=== PATIENT | male | born 1995 | race Caucasian/White ===

== ENCOUNTER 2021-08-13 01:36 | Emergency (ER) | payer OTHER, SELFPAY ==
--- NOTE | ~2021-08-13 | XR_ITS ---
EXAMINATION: XR chest 2V DATE: 08/13/2021 03:14 INDICATION: Dizziness. TECHNIQUE: Frontal and lateral views of the chest were obtained. COMPARISON: Chest 2 views 05/15/2014 FINDINGS: The chest demonstrates clear lungs without pneumonia, pleural effusion, or pneumothorax. Th e heart size is normal. IMPRESSION: 1. No acute cardiopulmonary disease. Reviewed, dictated and finalized at location A. RACTIVE DEVELOPER
[2021-08-13 01:43] VITALS: BP 157/97; PULSE 99; RESP 14; TEMP 36.7; O2SAT 100
[2021-08-13 03:18] LABS: Basophils Absolute Auto 0.1 K/mm3 (0.0-0.1); Basophils Percent Auto 0.7 % (0.2-1.2); Eosinophils Absolute Auto 0.3 K/mm3 (0-0.3); Eosinophils Percent Auto 3.8 % (0-4.4); Hematocrit 48.5 % (42.0-52.0); Hemoglobin 16.4 g/dL (14.0-18.0); Immature Granulocyte Absolute 0.02 K/mm3 (0.00-0.031); Immature Granulocyte Percent A 0.2 % (0-0.5); Lymphocytes Absolute Auto 1.54 K/mm3 (0.9-3.2); Lymphocytes Percent Auto 19.1 % (18.3-44.2); Mean Corpuscular HGB Conc 33.8 g/dl (32-36); Mean Corpuscular Hemoglobin 30.4 pg (26-34); Mean Corpuscular Volume 89.8 fl (80-100); Monocytes Absolute Auto 1.1 K/mm3 (0.1-0.6); Monocytes Percent Auto 14.1 % (2.6-8.5); Neutrophils Percent Auto 62.1 % (45.5-73.1); Platelet Count Result 371 k/mm3 (150-375); Red Cell Distribution Width 12.5 % (11.5-14.5); White Blood Count 8.1 K/mm3 (4.5-10.0)
[2021-08-13 03:20] VITALS: BP 145/85; PULSE 86
[2021-08-13 03:21] VITALS: BP 148/97; PULSE 96
[2021-08-13 03:22] VITALS: BP 141/93; PULSE 120
[2021-08-13 03:40] LABS: Add Urine Microscopic? YES; Appearance Urine Cloudy (Clear); Bacteria Urine 2+ /hpf; Bilirubin Urine Negative (Negative); Blood Urine Negative (Negative); Color Urine Yellow (Yellow); Glucose Urine UA Negative (Negative); Ketones Urine Trace mg/dL (Negative); Leukocyte Esterase Ur Negative LEU/UL (Negative); Mucus Urine Rare /lpf; Nitrate Urine Negative (Negative); Protein Urine 1+ mg/dL (Negative); Squamous Epithelial Cell Urine Rare /hpf (Few)
[2021-08-13 04:05] LABS: Anion Gap 12 mmol/L (8-16); Blood Urea Nitrogen 17 mg/dL (9-20); Calcium 9.6 mg/dL (8.4-10.2); Carbon Dioxide 26 mmol/L (22-30); Chloride 104 mmol/L (98-107); Estimated CRCL calculation 113 ml/min; Estimated Glomerular Filt Rate > 60; Glucose 111 mg/dL (65-110); Potassium 3.6 mmol/L (3.4-5.0); Sodium 142 mmol/L (137-145)
[2021-08-13] MEDS: SODIUM CHLORIDE 0.9% IV 1,000 ML 999 ML IV CONT (04:17)
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
[2021-08-13 04:50] VITALS: BP 132/94; PULSE 83; RESP 16; O2SAT 100
== END 2021-08-13 05:24 | disposition home or self-care (01) ==
PROVIDERS: Emergency Provider Emergency Medicine
DX: F15.23 Other stimulant dependence with withdrawal (principal); E86.0 Dehydration
CPT/HCPCS: 36415; 71046; 80048; 81001; 85025; 96360; 99283; J7030

== ENCOUNTER 2024-06-06 12:59 | Emergency (ER) | payer OTHER, SELFPAY ==
[2024-06-06] VITALS (25 sets, daily range): BP systolic 122–140; BP diastolic 72–86; PULSE 71–91; RESP 13–20; TEMP 36.4–36.9; O2SAT 95–100
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
--- NOTE | 2024-06-06 13:30 | ECG_ITS ---
Test Date: 2024-06-06 13:35:26 Measurements Intervals [place] Rate: 76 P: 64 [place]: 158 QRS: 61 QRSD: 93 T: 61 QT: 366 QTc: 412 Interpretive Statements SINUS RHYTHM NORMAL ECG No previous ECG available for comparison Electronically Signed On 06-06-2024 17:31:35 CDT by Lei Virk D.O.
--- NOTE | 2024-06-06 13:41 | PC.NURSE ---
patient to xray
[2024-06-06 13:52] LABS: Alanine Aminotransferase 20 U/L (6-50); Albumin Level 3.9 g/dL (3.5-5.1); Alkaline Phosphatase 92 U/L (38-126); Anion Gap 6 mmol/L (4-12); Aspartate Amino Transferase 24 U/L (17-59); Bilirubin,Total 0.7 mg/dL (0.2-1.3); Blood Urea Nitrogen 13 mg/dL (9-20); Carbon Dioxide 29 mmol/L (22-30); Chloride 92 mmol/L (98-107); Estimated CRCL calculation 159 ml/min; Estimated Glomerular Filt Rate > 60; Glucose 100 mg/dL (65-110); Potassium 3.8 mmol/L (3.4-5.0); Sodium 127 mmol/L (137-145)
[2024-06-06 13:57] LABS: Basophils Percent Auto 0.4 % (0.2-1.2); Eosinophils Absolute Auto 0.3 K/mm3 (0-0.3); Eosinophils Percent Auto 4.1 % (0-4.4); Hematocrit 39.4 % (42.0-52.0); Hemoglobin 13.6 g/dL (14.0-18.0); Immature Granulocyte Absolute 0.02 K/mm3 (0.00-0.031); Immature Granulocyte Percent A 0.3 % (0-0.5); Lymphocytes Absolute Auto 1.22 K/mm3 (0.9-3.2); Mean Corpuscular HGB Conc 34.5 g/dl (32-36); Mean Corpuscular Hemoglobin 31.1 pg (26-34); Mean Corpuscular Volume 90.2 fl (80-100); Mean Platelet Volume 9.9 fl (7.4-10.4); Monocytes Absolute Auto 0.9 K/mm3 (0.1-0.6); Monocytes Percent Auto 11.9 % (2.6-8.5); Neutrophils Absolute Auto 4.8 K/mm3 (1.3-6.7); Neutrophils Percent Auto 66.3 % (45.5-73.1); Platelet Count Result 305 k/mm3 (150-375); Red Blood Count 4.37 M/mm3 (4.6-6.20); White Blood Count 7.2 K/mm3 (4.5-10.0)
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
[2024-06-06] MEDS: diphenhydrAMINE HCl INJ 50 MG/ML VIAL 25 MG IV PUSH (16:36)
[2024-06-06] MEDS: KETOROLAC 15 MG/ML VIAL (*BKC) IV PUSH (16:36)
[2024-06-06] MEDS: PROCHLORPERAZINE EDISYLATE 10 MG/2 ML VIAL 5 MG IV PUSH (16:36)
[2024-06-06] MEDS: ACETAMINOPHEN 500 MG TABLET 1000 MG PO (16:36)
[2024-06-06] MEDS: SODIUM CHLORIDE 0.9% IV 1,000 ML 999 ML IV CONT (16:44)
== END 2024-06-06 17:51 | disposition home or self-care (01) ==
PROVIDERS: Emergency Provider Student in an Organized Health Care Education/Training Program
DX: R51.9 Headache, unspecified (principal); S06.2XAS Diffuse traumatic brain injury with loss of consciousness status unknown, sequela; E87.1 Hypo-osmolality and hyponatremia; S42.002S Fracture of unspecified part of left clavicle, sequela; S02.19XS Other fracture of base of skull, sequela; S02.10 Unspecified fracture of base of skull; D64.9 Anemia, unspecified; V29.99XS Rider (driver) (passenger) of other motorcycle injured in unspecified traffic accident, sequela
CPT/HCPCS: 36415; 70450; 70486; 71046; 80053; 85025; 93005; 96361; 96374; 96375; 99284; A4565; A9270; J0780; J1200; J1885; J7030

== ENCOUNTER 2024-11-13 18:52 | Inpatient (IN) | payer OTHER, SELFPAY ==
[2024-11-13] VITALS (22 sets, daily range): BP systolic 123–156; BP diastolic 70–101; PULSE 82–106; RESP 11–21; TEMP 36.7–37; O2SAT 97–100; BMI 22.1
--- NOTE | ~2024-11-13 | XR_ITS ---
Portable chest x-ray Comparison: 06/06/2024 Clinical History: Hyponatremia Findings: Lungs are clear, without focal consolidation or pleural effusion. Cardiomediastinal silho uette is stable. Bones and soft tissues are unremarkable. Impression: Normal chest. Reviewed, dictated and finalized at [facility]. CENTER MANAGER Impression: Normal chest.
--- NOTE | ~2024-11-13 | CT_ITS ---
Non-contrast Head CT History: Confusion COMPARISON: 06/06/2024 Technique: Axial non-contrast imaging of the brain was performed. Dose reduction technique was used on this scan by utilizing automated exposure control and iterative reconstruction technique. The dose -length product (DLP) was 681.00 mGy-cm. Findings: There is no evidence of intracranial hemorrhage, mass lesion, or acute infarct. Brain par enchyma appears normal. The ventricles and subarachnoid spaces are normal in size. The calvarium ap pears normal. There is partially imaged right maxillary sinus disease. The remaining visualized paran cher sinuses and mastoid air cells are clear. Impression: No intracranial abnormality seen. Reviewed, dictated and finalized at location . TH AND SAFETY REPRESENTATIVE Impression: No intracranial abnormality seen.
--- OUTSIDE RECORDS SUMMARY | 2024-11-13 18:55 | XMS_ITS | CONTINUITY OF CARE DOCUMENT ---
Author Name sandor patten Address Unknown Organization [facility] Address [address] [place] [address] Phone [phone] Care Team Providers Care M48 M60 Armor Crewman Name Role Phone Ricardo Restrepo MD Unavailable [phone] KAREN MILLER MD Unavailable [phone] KAREN MILLER MD Unavailable INSURANCE PROVIDERS Payer name Policy type / Coverage type [place] red green party ID [employer] [place] Medicaid [id number]
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
[2024-11-13] MEDS: ONDANSETRON INJ 4 MG/2 ML VIAL IV PUSH (19:46)
--- OUTSIDE RECORDS SUMMARY | 2024-11-13 19:47 | XMS_ITS | CONTINUITY OF CARE DOCUMENT ---
Author Name sandor patten Address Unknown Organization [facility] Address [address] [place] [address] Phone [phone] Care Team Providers Care Chorus Master Name Role Phone Ricardo Restrepo MD Unavailable KAREN MILLER MD Unavailable [phone] KAREN MILLER MD Unavailable [phone] INSURANCE PROVIDERS Payer name Policy type / Coverage type [place] red republican ID [employer] [place] Medicaid [id number]
[2024-11-13 20:09] LABS: Basophils Percent Auto 0.2 % (0.2-1.2); Eosinophils Absolute Auto 0.1 K/mm3 (0-0.3); Eosinophils Percent Auto 0.6 % (0-4.4); Hemoglobin 14.1 g/dL (14.0-18.0); Immature Granulocyte Absolute 0.04 K/mm3 (0.00-0.031); Immature Granulocyte Percent A 0.4 % (0-0.5); Lymphocytes Absolute Auto 1.08 K/mm3 (0.9-3.2); Lymphocytes Percent Auto 11.7 % (18.3-44.2); Mean Corpuscular Hemoglobin 30.5 pg (26-34); Mean Corpuscular Volume 79.9 fl (80-100); Mean Platelet Volume 9.5 fl (7.4-10.4); Monocytes Percent Auto 10.8 % (2.6-8.5); Neutrophils Percent Auto 76.3 % (45.5-73.1); Platelet Count Result 319 k/mm3 (150-375); Red Blood Count 4.63 M/mm3 (4.6-6.20); Red Cell Distribution Width 11.9 % (11.5-14.5); White Blood Count 9.2 K/mm3 (4.5-10.0)
[2024-11-13 20:19] LABS: Add Urine Microscopic? NO; Appearance Urine Clear (Clear); Bilirubin Urine Negative (Negative); Blood Urine Negative (Negative); Color Urine Yellow (Yellow); Glucose Urine UA Negative (Negative); Ketones Urine Negative (Negative); Leukocyte Esterase Ur Negative LEU/UL (Negative); Nitrate Urine Negative (Negative); Protein Urine Negative (Negative); Specific Grav Ur 1.006 (1.001-1.035); Urobilinogen Urine 0.2 mg/dL (<2.0)
[2024-11-13 20:26] LABS: Alanine Aminotransferase 35 U/L (6-50); Albumin Level 4.6 g/dL (3.5-5.1); Alkaline Phosphatase 73 U/L (38-126); Anion Gap 11 mmol/L (4-12); Aspartate Amino Transferase 27 U/L (17-59); Bilirubin,Total 0.6 mg/dL (0.2-1.3); Blood Urea Nitrogen 8 mg/dL (9-20); Calcium 8.8 mg/dL (8.4-10.2); Carbon Dioxide 22 mmol/L (22-30); Chloride 81 mmol/L (98-107); Estimated CRCL calculation 150 ml/min; Estimated Glomerular Filt Rate > 60; Glucose 96 mg/dL (65-110); Magnesium 1.8 mg/dL (1.6-2.3); Potassium 4.3 mmol/L (3.4-5.0); Sodium 114 mmol/L (137-145)
[2024-11-13 21:24] LABS: Phosphorus 3.2 mg/dL (2.5-4.5); Uric Acid 1.6 mg/dL (3.5-8.5)
[2024-11-13 21:31] LABS: Creatinine Urine 20.4 mg/dL; Urea Random Urine 181 MG/DL
[2024-11-13] MEDS: SODIUM CHLORIDE 0.9% IV 1,000 ML 999 ML IV CONT (21:31)
[2024-11-13 21:32] LABS: Sodium Urine Random 42 meq/L
[2024-11-13 21:39] LABS: Mean Corpuscular HGB Conc 38.1 g/dl (32-36)
[2024-11-13 21:59] LABS: Cortisol Baseline 4.66 ug/dL
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
--- NOTE | 2024-11-13 23:53 | ADMGEN ---
This patient, Dev Ritter, was admitted to IMU Room 204-01. Patient/family oriented to hospital policies and general routines including ID bracelet, bed and alarms, visiting hours, pain management, procedures, bathroom and other care routines, personal items, smoking policy, room service/diet, and visiting hours. Information on how to activate the Rapid Response Team has been discussed. Patient/Family are encouraged to report perceived risks to care and to ask questions if they do not understand what they are told or what they should do.
[2024-11-14] VITALS (14 sets, daily range): BP systolic 120–138; BP diastolic 68–84; PULSE 68–91; RESP 16–20; TEMP 36.4–36.9; O2SAT 98–100
[2024-11-14 00:53] LABS: Anion Gap 11 mmol/L (4-12); Blood Urea Nitrogen 7 mg/dL (9-20); Calcium 8.9 mg/dL (8.4-10.2); Carbon Dioxide 21 mmol/L (22-30); Chloride 85 mmol/L (98-107); Estimated CRCL calculation 145 ml/min; Estimated Glomerular Filt Rate > 60; Glucose 90 mg/dL (65-110); Potassium 4.3 mmol/L (3.4-5.0); Sodium 117 mmol/L (137-145)
[2024-11-14 04:50] LABS: Anion Gap 9 mmol/L (4-12); Blood Urea Nitrogen 7 mg/dL (9-20); Calcium 8.7 mg/dL (8.4-10.2); Carbon Dioxide 22 mmol/L (22-30); Chloride 87 mmol/L (98-107); Estimated CRCL calculation 148 ml/min; Estimated Glomerular Filt Rate > 60; Glucose 94 mg/dL (65-110); Sodium 118 mmol/L (137-145)
[2024-11-14 08:26] LABS: Sodium 118 mmol/L (137-145)
[2024-11-14] MEDS: SODIUM CHLORIDE 1 GM TABLET PO ×2 (08:52→17:05)
--- NOTE | 2024-11-14 09:26 | PC.NURSE ---
officers onsite report that pt has been refusing to take salt tabs at the half-way per salvage supervisor
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
[2024-11-14 12:28] LABS: Sodium 119 mmol/L (137-145)
[2024-11-14] MEDS: ACETAMINOPHEN 325 MG TABLET 650 MG PO ×2 (13:11→17:05)
[2024-11-14 16:05] LABS: Sodium 121 mmol/L (137-145)
[2024-11-14 20:21] LABS: Sodium 120 mmol/L (137-145)
[2024-11-15] VITALS (15 sets, daily range): BP systolic 112–143; BP diastolic 60–85; PULSE 65–102; RESP 14–17; TEMP 36.3–37; O2SAT 99–100
[2024-11-15 00:34] LABS: Sodium 119 mmol/L (137-145)
[2024-11-15 00:37] LABS: Urea Random Urine 367 MG/DL
[2024-11-15 00:42] LABS: Sodium Urine Random 91 meq/L
[2024-11-15 00:46] LABS: Amphetamine Screen Urine Negative (Negative); Barbiturate Screen Urine Negative (Negative); Benzodiazepines Screen Urine Negative (Negative); Cannabinoid Screen Urine Negative (Negative); Cocaine Screen Urine Negative (Negative); Methadone Screen Urine Negative (Negative); Opiate Screen Urine Negative (Negative); Phencyclidine Screen Urine Negative (Negative)
[2024-11-15] MEDS: SODIUM CHLORIDE 3% 500 ML 70 ML IV CONT (01:05)
[2024-11-15 05:42] LABS: Anion Gap 9 mmol/L (4-12); Blood Urea Nitrogen 10 mg/dL (9-20); Calcium 8.9 mg/dL (8.4-10.2); Carbon Dioxide 23 mmol/L (22-30); Chloride 91 mmol/L (98-107); Estimated CRCL calculation 140 ml/min; Estimated Glomerular Filt Rate > 60; Glucose 91 mg/dL (65-110); Potassium 4.4 mmol/L (3.4-5.0); Sodium 123 mmol/L (137-145)
[2024-11-15] MEDS: ONDANSETRON INJ 4 MG/2 ML VIAL IV PUSH (09:25)
[2024-11-15] MEDS: SODIUM CHLORIDE 1 GM TABLET PO ×3 (09:25→16:51)
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
--- NOTE | 2024-11-15 10:05 | P.PNNP_ITS ---
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 * awaiting old records regarding previous testing/hospitalizations for hyponatremia * goal of therapy is a change of no more than 8mmol/l in 24 hours * hence, a sodium no higher than 122mmol/L by 8pm on 11/15 -- this was acheived * s/p 3% saline early this AM * follow trend of serial sodium levels Will continue to follow. L Subjective Date/time seen: 11/15/24 10:05 Interval history: Follow-up for acute on chronic hyponatremia. Sodium slowly improving yesterday but declined in the ticket broker (dropped below 120mmol/L at midnight) so given a run of 3% saline with improvement in sodium level to 123mmol/L by AM labs; appears to be tolerating salt tablet administration in conjunction with fluid restriction; no apparent distresss noted. Exam 2 Narrative: General: WD/WN male in NAD Heart: normal S1 and S2; no rub Lungs: clear to auscultation Abdomen: soft, nontender, nondistended, positive bowel sounds Extremities: no cyanosis or clubbing; no edema Skin: warm and dry Objective Data Vital Signs Vital Signs: Vital Signs Temp Pulse Resp BP Pulse Ox 11/15/24 07:32 97.9 F 70 16 127/71 100 11/15/24 06:00 77 11/15/24 04:00 69 11/15/24 04:00 97.3 F L 65 16 112/64 99 11/15/24 02:00 68 11/15/24 00:00 70 11/14/24 23:46 97.7 F 71 16 120/78 99 11/14/24 22:00 79 11/14/24 20:00 72 11/14/24 20:00 97.5 F L 80 16 123/84 100 11/14/24 18:00 91 11/14/24 16:00 98.1 F 87 16 127/68 98 11/14/24 16:00 85 11/14/24 14:00 82 11/14/24 12:00 86 Intake/Output Intake/Output: Intake & Output 11/12/24 11/13/24 11/14/24 11/15/24 23:59 23:59 23:59 23:59 Intake Total 1000 2100 691.2 Output Total 2600 700 Balance 1000 -500 -8.8 Meds/Results Medications: Active Medications Generic Name Dose Route Start Last Admin Trade Name Freq PRN Reason Stop Dose Admin Acetaminophen 650 mg 11/13/24 22:03 11/14/24 17:05 Acetaminophen 325 Mg Tablet PO 650 mg Q4H PRN Administration Mild Pain (1-3) or Fever Ondansetron HCl 4 mg 11/13/24 22:03 11/15/24 09:25 Ondansetron Inj 4 Mg/2 Ml Vial IV PUSH 4 mg Q4H PRN Administration Nausea Ondansetron HCl 4 mg 11/14/24 17:16 Ondansetron Inj 4 Mg/2 Ml Vial IV PUSH Q6H PRN Nausea And Vomiting Sodium Chloride 1 gm 11/14/24 09:00 11/15/24 09:25 Sodium Chloride 1 Gm Tablet PO 1 gm BID HA Administration Radiology Results: ITS Impressions Head CT 11/14/24 05:28 Impression: No intracranial abnormality seen. Labs Labs: Laboratory Tests 11/13/24 19:42 11/15/24 05:14 11/13/24 11/14/24 11/14/24 11/14/24 11/14/24 11/14/24 11/14/24 11/15/24 19:42 00:09 04:07 08:03 12:01 15:53 19:55 00:09 Sodium 114 L* 117 L* 118 L* 118 L* 119 L* 121 L 120 L 119 L*
[2024-11-15 10:51] LABS: Basophils Percent Auto 0.2 % (0.2-1.2); Eosinophils Absolute Auto 0.1 K/mm3 (0-0.3); Eosinophils Percent Auto 2.7 % (0-4.4); Hematocrit 38.6 % (42.0-52.0); Hemoglobin 13.8 g/dL (14.0-18.0); Immature Granulocyte Absolute 0.01 K/mm3 (0.00-0.031); Immature Granulocyte Percent A 0.2 % (0-0.5); Lymphocytes Percent Auto 28.6 % (18.3-44.2); Mean Corpuscular HGB Conc 35.8 g/dl (32-36); Mean Corpuscular Hemoglobin 30.6 pg (26-34); Mean Corpuscular Volume 85.6 fl (80-100); Mean Platelet Volume 10.3 fl (7.4-10.4); Monocytes Absolute Auto 0.9 K/mm3 (0.1-0.6); Monocytes Percent Auto 17.7 % (2.6-8.5); Neutrophils Absolute Auto 2.7 K/mm3 (1.3-6.7); Neutrophils Percent Auto 50.6 % (45.5-73.1); Platelet Count Result 291 k/mm3 (150-375); Red Blood Count 4.51 M/mm3 (4.6-6.20); Red Cell Distribution Width 13.1 % (11.5-14.5); White Blood Count 5.3 K/mm3 (4.5-10.0)
[2024-11-15 11:17] LABS: Anion Gap 8 mmol/L (4-12); Blood Urea Nitrogen 8 mg/dL (9-20); Calcium 8.9 mg/dL (8.4-10.2); Carbon Dioxide 24 mmol/L (22-30); Chloride 91 mmol/L (98-107); Estimated CRCL calculation 130 ml/min; Estimated Glomerular Filt Rate > 60; Glucose 84 mg/dL (65-110); Magnesium 1.8 mg/dL (1.6-2.3); Potassium 4.4 mmol/L (3.4-5.0); Sodium 123 mmol/L (137-145)
[2024-11-15 15:03] LABS: Osmolality, Urine 188 mOsm/kg (50-1200)
[2024-11-15 17:18] LABS: Sodium 122 mmol/L (137-145)
--- NOTE | 2024-11-15 18:14 | PC.NURSE ---
Detailed message left for Dr. Tolliver reporting current Na level of 122.
[2024-11-15 23:14] LABS: Sodium 124 mmol/L (137-145)
[2024-11-16] VITALS (18 sets, daily range): BP systolic 111–157; BP diastolic 58–83; PULSE 69–109; RESP 14–18; TEMP 36.3–36.9; O2SAT 99–100
[2024-11-16 05:49] LABS: Basophils Percent Auto 0.3 % (0.2-1.2); Eosinophils Absolute Auto 0.2 K/mm3 (0-0.3); Eosinophils Percent Auto 2.8 % (0-4.4); Hematocrit 37.9 % (42.0-52.0); Hemoglobin 13.9 g/dL (14.0-18.0); Immature Granulocyte Absolute 0.02 K/mm3 (0.00-0.031); Immature Granulocyte Percent A 0.3 % (0-0.5); Lymphocytes Absolute Auto 1.42 K/mm3 (0.9-3.2); Lymphocytes Percent Auto 23.8 % (18.3-44.2); Mean Corpuscular HGB Conc 36.7 g/dl (32-36); Mean Corpuscular Hemoglobin 31.2 pg (26-34); Mean Corpuscular Volume 85.2 fl (80-100); Mean Platelet Volume 9.5 fl (7.4-10.4); Monocytes Percent Auto 16.2 % (2.6-8.5); Neutrophils Absolute Auto 3.4 K/mm3 (1.3-6.7); Neutrophils Percent Auto 56.6 % (45.5-73.1); Platelet Count Result 284 k/mm3 (150-375); Red Blood Count 4.45 M/mm3 (4.6-6.20); Red Cell Distribution Width 12.8 % (11.5-14.5)
[2024-11-16 06:02] LABS: Anion Gap 9 mmol/L (4-12); Blood Urea Nitrogen 10 mg/dL (9-20); Calcium 9.1 mg/dL (8.4-10.2); Carbon Dioxide 25 mmol/L (22-30); Chloride 90 mmol/L (98-107); Estimated CRCL calculation 147 ml/min; Estimated Glomerular Filt Rate > 60; Glucose 96 mg/dL (65-110); Magnesium 1.9 mg/dL (1.6-2.3); Sodium 124 mmol/L (137-145)
[2024-11-16] MEDS: SODIUM CHLORIDE 1 GM TABLET PO ×3 (08:31→16:36)
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
[2024-11-16 12:50] LABS: Sodium 126 mmol/L (137-145)
--- NOTE | 2024-11-16 12:51 | P.PNNP_ITS ---
Progress Note: A&P Assessment and Plan (1) Hyponatremia: Code(s): E87.1 - Hypo-osmolality and hyponatremia Status: Acute Assessment and Plan: * acute on chronic * baseline sodium level not clear - old records/hospitalizations reviewed: * eloped from [facility] in May 2024 -- last sodium 131 but was getting 1.8% saline prior to leaving the hospital * 127mmol/L in June 2024 ([facility] ER visit) * 137mmol/L on discharge from [facility] about a week ago * each hospitalization concluded SIADH secondary to TBI as cause of low sodium based on testing done * at [facility] last week, he was receiving tolvaptan up until discharge and was initiated on fluid restriction and salt tabs AFTER discharge from hospital * acute drop in sodium likely secondary to non-compliance with salt tabs * evaluation to date noted: * urine electrolytes non-prerenal * TSH okay * cortisol low normal - consider stim test * seum/urine osmo pending * SPEP/UPEP pending * CXR pending * CT of head negative * continue fluid restriction and salt tabs * consider adding low dose lasix as well... * s/p 3% saline this AM * follow trend of serial sodium levels Will continue to follow. L Subjective Date/time seen: 11/16/24 12:51 Interval history: Follow-up for acute on chronic hyponatremia. Sodium level is slowly improving but required another run of 3% saline this morning as his sodium had flatlined at 124mmol/L; sodium tablets increased to three times a day frequency today as well; no other acute issues/events overnight or earlier this morning. Exam 2 Narrative: General: WD/WN male in NAD Heart: normal S1 and S2; no rub Lungs: clear to auscultation Abdomen: soft, nontender, nondistended, positive bowel sounds Extremities: no cyanosis or clubbing; no edema Skin: warm and intact Objective Data Vital Signs Vital Signs: Vital Signs Temp Pulse Resp BP Pulse Ox 11/16/24 12:00 82 11/16/24 11:36 98.4 F 89 16 125/68 99 11/16/24 10:00 88 11/16/24 08:00 96 11/16/24 07:30 98.2 F 69 14 122/58 L 100 11/16/24 06:00 74 11/16/24 04:00 73 11/16/24 03:47 97.4 F L 70 18 111/67 100 11/16/24 02:00 82 11/16/24 00:00 74 11/15/24 23:57 97.8 F 76 17 136/60 99 11/15/24 22:00 88 11/15/24 20:00 97 11/15/24 20:00 98.2 F 84 17 126/74 100 11/15/24 18:00 88 Intake/Output Intake/Output: Intake & Output 11/13/24 11/14/24 11/15/24 11/16/24 23:59 23:59 23:59 23:59 Intake Total 1000 2100 1171.2 480 Output Total 2600 700 1100 Balance 1000 -500 471.2 -620 Meds/Results Medications: Active Medications Generic Name Dose Route Start Last Admin Trade Name Freq PRN Reason Stop Dose Admin Acetaminophen 650 mg 11/13/24 22:03 11/14/24 17:05 Acetaminophen 325 Mg Tablet PO 650 mg Q4H PRN Administration Mild Pain (1-3) or Fever Ondansetron HCl 4 mg 11/13/24 22:03 11/15/24 09:25 Ondansetron Inj 4 Mg/2 Ml Vial IV PUSH 4 mg Q4H PRN Administration Nausea Ondansetron HCl 4 mg 11/14/24 17:16 Ondansetron Inj 4 Mg/2 Ml Vial IV PUSH Q6H PRN Nausea And Vomiting Sodium Chloride 1 gm 11/16/24 13:35 11/16/24 14:09 Sodium Chloride 1 Gm Tablet PO 1 gm TID HA Administration Radiology Results: ITS Impressions Head CT 11/14/24 05:28 Impression: No intracranial abnormality seen. Labs Labs: Laboratory Tests 11/16/24 05:18 11/16/24 12:30 11/16/24 05:18 Sodium 124 L Potassium 4.0 Chloride 90 L Carbon Dioxide 25 Anion Gap 9 BUN 10 Creatinine 0.66 L Estim Creat Clear Calc 147 Estimated GFR > 60 Glucose 96 Calcium 9.1 Magnesium 1.9
[2024-11-16 18:48] LABS: Sodium 123 mmol/L (137-145)
[2024-11-16] MEDS: FUROSEMIDE 10 MG TABLET PO (20:28)
[2024-11-17] VITALS (13 sets, daily range): BP systolic 115–153; BP diastolic 71–80; PULSE 68–112; RESP 12–20; TEMP 36.6–36.7; O2SAT 99–100
[2024-11-17 04:40] LABS: Basophils Percent Auto 0.4 % (0.2-1.2); Eosinophils Absolute Auto 0.3 K/mm3 (0-0.3); Eosinophils Percent Auto 4.3 % (0-4.4); Hematocrit 38.3 % (42.0-52.0); Hemoglobin 13.6 g/dL (14.0-18.0); Immature Granulocyte Absolute 0.02 K/mm3 (0.00-0.031); Immature Granulocyte Percent A 0.3 % (0-0.5); Lymphocytes Absolute Auto 2.21 K/mm3 (0.9-3.2); Lymphocytes Percent Auto 31.9 % (18.3-44.2); Mean Corpuscular HGB Conc 35.5 g/dl (32-36); Mean Corpuscular Hemoglobin 30.6 pg (26-34); Mean Corpuscular Volume 86.3 fl (80-100); Mean Platelet Volume 9.7 fl (7.4-10.4); Monocytes Absolute Auto 0.9 K/mm3 (0.1-0.6); Monocytes Percent Auto 12.6 % (2.6-8.5); Neutrophils Absolute Auto 3.5 K/mm3 (1.3-6.7); Neutrophils Percent Auto 50.5 % (45.5-73.1); Platelet Count Result 263 k/mm3 (150-375); Red Blood Count 4.44 M/mm3 (4.6-6.20); Red Cell Distribution Width 12.9 % (11.5-14.5); White Blood Count 6.9 K/mm3 (4.5-10.0)
[2024-11-17 04:51] LABS: Anion Gap 9 mmol/L (4-12); Blood Urea Nitrogen 9 mg/dL (9-20); Calcium 9.2 mg/dL (8.4-10.2); Carbon Dioxide 24 mmol/L (22-30); Chloride 89 mmol/L (98-107); Estimated CRCL calculation 161 ml/min; Estimated Glomerular Filt Rate > 60; Glucose 90 mg/dL (65-110); Magnesium 1.7 mg/dL (1.6-2.3); Potassium 3.8 mmol/L (3.4-5.0); Sodium 122 mmol/L (137-145)
[2024-11-17] MEDS: SODIUM CHLORIDE 3% 500 ML 72 ML IV CONT (06:24)
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
[2024-11-17] MEDS: SODIUM CHLORIDE 1 GM TABLET PO ×4 (09:57→23:54)
[2024-11-17] MEDS: FUROSEMIDE 10 MG TABLET PO ×3 (09:57→17:10)
[2024-11-17 11:08] LABS: Sodium 125 mmol/L (137-145)
--- NOTE | 2024-11-17 13:12 | P.PNNP_ITS ---
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 as the cause of low sodium based on testing done * at [facility] [place] last week, he was receiving tolvaptan up until discharge and was only initiated on fluid restriction and salt tabs AFTER discharge from hospital * acute drop in sodium likely precipitated/secondary to non-compliance with salt tabs * evaluation to date noted: * urine electrolytes non-prerenal * TSH okay * cortisol low normal - check stim test * serum/urine osmolality pending * SPEP/UPEP pending * CXR negative * CT of head negative * continue fluid restriction and salt tabs * added low dose lasix with salt tablets * increase dose of salt tabs? * s/p 3% saline this AM * follow trend of serial sodium levels Will continue to follow. L Subjective Date/time seen: 11/17/24 13:12 Interval history: Follow-up for acute on chronic hyponatremia. Sodium has been somewhat resistant to interventions to date; s/p another run earlier this morning with sodium now up to 126mmol; lasix added to oral sodium tablets today; no other acute symptoms or problems voiced at the time of my visit; no apparent distress noted. Exam 2 Narrative: General: WD/WN male in NAD Heart: normal S1 and S2; no rub Lungs: clear to auscultation Abdomen: soft, nontender, nondistended, positive bowel sounds Extremities: no cyanosis or clubbing; no edema Skin: no rash Objective Data Vital Signs Vital Signs: Vital Signs Temp Pulse Resp BP Pulse Ox 11/17/24 12:00 97 11/17/24 11:30 98.1 F 82 20 128/79 100 11/17/24 10:00 97 11/17/24 08:00 84 11/17/24 08:00 97.8 F 72 12 115/71 100 11/17/24 06:00 68 11/17/24 04:00 68 11/17/24 03:46 98.1 F 75 16 133/75 100 11/17/24 02:00 71 11/17/24 00:00 74 11/16/24 23:30 98.0 F 72 16 130/78 100 11/16/24 22:00 82 11/16/24 20:10 98.0 F 83 16 157/83 H 100 11/16/24 20:00 84 11/16/24 18:00 94 11/16/24 16:00 78 Intake/Output Intake/Output: Intake & Output 11/14/24 11/15/24 11/16/24 11/17/24 23:59 23:59 23:59 23:59 Intake Total 2100 1171.2 720 1220 Output Total 2600 700 1500 200 Balance -500 471.2 -780 1020 Meds/Results Medications: Active Medications Generic Name Dose Route Start Last Admin Trade Name Freq PRN Reason Stop Dose Admin Acetaminophen 650 mg 11/13/24 22:03 11/14/24 17:05 Acetaminophen 325 Mg Tablet PO 650 mg Q4H PRN Administration Mild Pain (1-3) or Fever Furosemide 10 mg 11/17/24 13:00 11/17/24 13:08 Furosemide 10 Mg Tablet PO 10 mg TID HA Administration Ondansetron HCl 4 mg 11/14/24 17:16 Ondansetron Inj 4 Mg/2 Ml Vial IV PUSH Q6H PRN Nausea And Vomiting Sodium Chloride 1 gm 11/16/24 13:35 11/17/24 13:08 Sodium Chloride 1 Gm Tablet PO 1 gm TID HA Administration Sodium Chloride 1 gm 11/17/24 23:00 Sodium Chloride 1 Gm Tablet PO 11/17/24 23:01 ONCE ONE Radiology Results: ITS Impressions Head CT 11/14/24 05:28 Impression: No intracranial abnormality seen. Chest X-Ray 11/17/24 08:02 Impression: Normal chest. Labs Labs: Laboratory Tests 11/17/24 03:55 11/17/24 13:12 11/17/24 03:55 Sodium 122 L Potassium 3.8 Chloride 89 L Carbon Dioxide 24 Anion Gap 9 BUN 9 Creatinine 0.60 L Estim Creat Clear Calc 161 Estimated GFR > 60 Glucose 90 Calcium 9.2 Magnesium 1.7
[2024-11-17 13:41] LABS: Sodium 126 mmol/L (137-145)
[2024-11-17] MEDS: ONDANSETRON INJ 4 MG/2 ML VIAL IV PUSH (17:20)
[2024-11-17 19:24] LABS: Sodium 126 mmol/L (137-145)
[2024-11-18] VITALS: PULSE 85
[2024-11-18 00:09] VITALS: PULSE 85
[2024-11-18 03:13] LABS: Creatinine, Random Urine 92 mg/dL (20-320); Total Prot/Creat ratio mg/mg 0.054 (0.025-0.148); Total Protein/Creatinine Ratio 54 mg/g creat (25-148)
[2024-11-18 06:27] LABS: Basophils Percent Auto 0.3 % (0.2-1.2); Eosinophils Absolute Auto 0.3 K/mm3 (0-0.3); Eosinophils Percent Auto 4.6 % (0-4.4); Hematocrit 38.5 % (42.0-52.0); Hemoglobin 13.6 g/dL (14.0-18.0); Immature Granulocyte Absolute 0.01 K/mm3 (0.00-0.031); Immature Granulocyte Percent A 0.2 % (0-0.5); Lymphocytes Absolute Auto 1.45 K/mm3 (0.9-3.2); Lymphocytes Percent Auto 24.9 % (18.3-44.2); Mean Corpuscular HGB Conc 35.3 g/dl (32-36); Mean Corpuscular Hemoglobin 30.8 pg (26-34); Mean Corpuscular Volume 87.1 fl (80-100); Mean Platelet Volume 9.1 fl (7.4-10.4); Monocytes Absolute Auto 0.8 K/mm3 (0.1-0.6); Monocytes Percent Auto 13.2 % (2.6-8.5); Neutrophils Absolute Auto 3.3 K/mm3 (1.3-6.7); Neutrophils Percent Auto 56.8 % (45.5-73.1); Platelet Count Result 253 k/mm3 (150-375); Red Blood Count 4.42 M/mm3 (4.6-6.20); Red Cell Distribution Width 12.7 % (11.5-14.5); White Blood Count 5.8 K/mm3 (4.5-10.0)
[2024-11-18 06:39] LABS: Anion Gap 8 mmol/L (4-12); Blood Urea Nitrogen 11 mg/dL (9-20); Calcium 9.2 mg/dL (8.4-10.2); Carbon Dioxide 26 mmol/L (22-30); Chloride 93 mmol/L (98-107); Estimated CRCL calculation 140 ml/min; Estimated Glomerular Filt Rate > 60; Glucose 92 mg/dL (65-110); Potassium 4.4 mmol/L (3.4-5.0); Sodium 127 mmol/L (137-145)
[2024-11-18 06:47] LABS: Protein, Total 6.2 g/dL (6.1-8.1)
[2024-11-18] MEDS: COSYNTROPIN 0.25 MG/ML VIAL IV PUSH (06:53)
[2024-11-18 07:31] VITALS: BP 130/77; PULSE 77; RESP 16; TEMP 36.4; O2SAT 100
[2024-11-18 08:00] VITALS: PULSE 103
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
[2024-11-18] MEDS: SODIUM CHLORIDE 1 GM TABLET PO ×2 (09:40→16:34)
[2024-11-18] MEDS: ACETAMINOPHEN 325 MG TABLET 650 MG PO (09:40)
[2024-11-18] MEDS: FUROSEMIDE 10 MG TABLET PO ×2 (09:40→16:34)
[2024-11-18] MEDS: ONDANSETRON INJ 4 MG/2 ML VIAL IV PUSH (09:48)
[2024-11-18 11:23] LABS: Kappa\\Lambda Light Chains 1.26 (0.26-1.65); Lambda Light Chain 13.7 mg/L (5.7-26.3)
[2024-11-18 12:00] VITALS: PULSE 106
--- NOTE | 2024-11-18 12:07 | P.PNNP_ITS ---
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 He says that he can not restrict his fluids because he works out and does not want to get dehydrated. He says he has been told that he says should drink 2-4 quarts of water per day. I told him this will almost guarantee that his sodium level looks going to drop again and that is dangerous. He does not seem insightful concerning his sodium and fluids. He says that there is an expensive pill that he can take that a correct his sodium let him drink all this fluid. I told him that fluid restriction is the main treatment for hyponatremia because all medicines have side effects which can potentially be undesirable. Will continue to educate the patient. * evaluation to date noted: * urine electrolytes non-prerenal * TSH okay * cortisol low normal - check stim test * serum/urine osmolality pending * SPEP/UPEP pending * CXR negative * CT of head negative * continue fluid restriction and salt tabs * added low dose lasix with salt tablets * increase dose of salt tabs? * Sodium 127 today, 4 up from yesterday. Will continue to follow. Subjective Date/time seen: 11/18/24 12:07 Interval history: Patient is alert. No chest pain or shortness of breath. He is thirsty Exam Narrative: General: WD/WN male in NAD Heart: normal S1 and S2; no rub Lungs: clear to auscultation Abdomen: soft, nontender, nondistended, positive bowel sounds Extremities: no cyanosis or clubbing; no edema Skin: no rash Objective Data Vital Signs Vital Signs: Vital Signs - 24 hr 11/17/24 14:00 11/17/24 16:00 11/17/24 16:00 Temperature 98 F Pulse Rate 112 H 85 95 Respiratory Rate 16 Blood Pressure 153/75 H Pulse Oximetry 99 Oxygen Delivery 11/17/24 19:44 11/17/24 20:00 11/17/24 20:00 Temperature 98.0 F Pulse Rate 110 H 110 H 106 H Respiratory Rate 18 18 Blood Pressure 144/80 H Pulse Oximetry 99 99 Oxygen Delivery Room Air 11/18/24 00:00 11/18/24 00:09 11/18/24 07:31 Temperature 97.5 F L Pulse Rate 85 85 77 Respiratory Rate 16 Blood Pressure 130/77 Pulse Oximetry 100 Oxygen Delivery Intake/Output Intake/Output: Intake & Output 11/15/24 11/16/24 11/17/24 11/18/24 23:59 23:59 23:59 23:59 Intake Total 1171.2 720 1860 480 Output Total 700 1500 200 Balance 471.2 -780 1660 480 Meds/Results Medications: Active Medications Generic Name Dose Route Start Last Admin Trade Name Freq PRN Reason Stop Dose Admin Acetaminophen 650 mg 11/13/24 22:03 11/18/24 09:40 Acetaminophen 325 Mg Tablet PO 650 mg Q4H PRN Administration Mild Pain (1-3) or Fever Furosemide 10 mg 11/17/24 13:00 11/18/24 09:40 Furosemide 10 Mg Tablet PO 10 mg TID HA Administration Ondansetron HCl 4 mg 11/14/24 17:16 11/18/24 09:48 Ondansetron Inj 4 Mg/2 Ml Vial IV PUSH 4 mg Q6H PRN Administration Nausea And Vomiting Sodium Chloride 1 gm 11/16/24 13:35 11/18/24 09:40 Sodium Chloride 1 Gm Tablet PO 1 gm TID HA Administration Radiology Results: ITS Impressions Head CT 11/14/24 05:28 Impression: No intracranial abnormality seen. Chest X-Ray 11/17/24 08:02 Impression: Normal chest. Labs Labs: Laboratory Results - last 24 hr 11/17/24 11/17/24 11/17/24 03:55 08:45 13:12 WBC RBC Hgb Hct MCV MCH MCHC RDW Plt Count MPV Immature Gran % (Auto) Neut % (Auto) Lymph % (Auto) [place] % (Auto) Eos % (Auto) Baso % (Auto) Lymph # (Auto) [place] # (Auto) Eos # (Auto) Baso # (Auto) Abs Immat Gran (auto) Absolute Neuts (auto) Absolute Nucleated RBC Nucleated RBC % Sodium 126 L Potassium Chloride Carbon Dioxide Anion Gap BUN Creatinine Estim Creat Clear Calc Estimated GFR Glucose Calcium Magnesium Total Protein 6.2 Cortisol Baseline Cortisol Resp 30 Min Cortisol Resp 60 Min Ur Random Creatinine 92 U Random Total Protein 5 Protein/Creatinin Ratio 54 [place]/Lambda Ratio 1.26 Free Dewy Rose Light Chains 17.3 Free Lambda Light Chain 13.7 11/17/24 11/18/24 11/18/24 19:13 06:20 06:21 WBC 5.8 RBC 4.42 L Hgb 13.6 L Hct 38.5 L MCV 87.1 MCH 30.8 MCHC 35.3 RDW 12.7 Plt Count 253 MPV 9.1 Immature Gran % (Auto) 0.2 Neut % (Auto) 56.8 Lymph % (Auto) 24.9 [place] % (Auto) 13.2 H Eos % (Auto) 4.6 H Baso % (Auto) 0.3 Lymph # (Auto) 1.45 [place] # (Auto) 0.8 H Eos # (Auto) 0.3 Baso # (Auto) 0.0 Abs Immat Gran (auto) 0.01 Absolute Neuts (auto) 3.3 Absolute Nucleated RBC 0.000 Nucleated RBC % 0.0 Sodium 126 L 127 L Potassium 4.4 Chloride 93 L Carbon Dioxide 26 Anion Gap 8 BUN 11 Creatinine 0.72 Estim Creat Clear Calc 140 Estimated GFR > 60 Glucose 92 Calcium 9.2 Magnesium 2.0 Total Protein Cortisol Baseline 11.00 Cortisol Resp 30 Min Cortisol Resp 60 Min Ur Random Creatinine U Random Total Protein Protein/Creatinin Ratio [place] Rose/Lambda Ratio Free Dewy Rose Light Chains Free Lambda Light Chain 11/18/24 11/18/24 07:32 08:01 WBC RBC Hgb Hct MCV MCH MCHC RDW Plt Count MPV Immature Gran % (Auto) Neut % (Auto) Lymph % (Auto) [place] % (Auto) Eos % (Auto) Baso % (Auto) Lymph # (Auto) [place] # (Auto) Eos # (Auto) Baso # (Auto) Abs Immat Gran (auto) Absolute Neuts (auto) Absolute Nucleated RBC Nucleated RBC % Sodium Potassium Chloride Carbon Dioxide Anion Gap BUN Creatinine Estim Creat Clear Calc Estimated GFR Glucose Calcium Magnesium Total Protein Cortisol Baseline Cortisol Resp 30 Min 22.10 Cortisol Resp 60 Min 29.10 Ur Random Creatinine U Random Total Protein Protein/Creatinin Ratio Dewy Rose/Lambda Ratio Free Dewy Rose Light Chains Free Lambda Light Chain
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
[2024-11-18 16:00] VITALS: PULSE 89
[2024-11-18 20:54] LABS: Albumin 3.9 g/dL (3.8-4.8); Alpha 1 Globulin 0.3 g/dL (0.2-0.3); Alpha 2 Globulin 0.6 g/dL (0.5-0.9); Beta 1 Globulin 0.4 g/dL (0.4-0.6); Gamma Globulin 0.8 g/dL (0.8-1.7)
== END 2024-11-18 17:05 | DRG 426 ==
LOC: ANHED 19:45 → ANHIMU 22:38
PROVIDERS: Internal Medicine Nephrology; Admitting Provider General Practice; Emergency Provider Student in an Organized Health Care Education/Training Program; Visit Provider Hospitalist
DX: E22.2 Syndrome of inappropriate secretion of antidiuretic hormone (principal); F90.9 Attention-deficit hyperactivity disorder, unspecified type; Z87.820 Personal history of traumatic brain injury
CPT/HCPCS: 36415; 70450; 71045; 80048; 80053; 80307; 81003; 82533; 82570; 83735; 83883; 83930; 83935; 84100; 84155; 84156; 84165; 84166; 84295; 84300; 84443; 84540; 84550; 85025; 96361; 96374; 96376; 99285; A9270; G0378; G0379; J0834; J2405; J7030; J7131

== ENCOUNTER 2024-11-22 14:30 | Inpatient (IN) | payer OTHER, SELFPAY ==
[2024-11-22] VITALS (27 sets, daily range): BP systolic 107–166; BP diastolic 58–100; PULSE 76–100; RESP 13–21; TEMP 36.3–36.8; O2SAT 93–100; BMI 22.6
--- OUTSIDE RECORDS SUMMARY | 2024-11-22 14:39 | XMS_ITS | Patient Health Summary ---
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 ......... 4.0 - 31.0 ng/dL Supine .......... Less than or equal to 16.0 ng/dL Unspecified ..... Less than or equal to 31.0 ng/dL Normal serum levels of aldosterone are dependent on the sodium intake and whether the patient is upright or supine. High sodium intake will tend to suppress serum aldosterone, whereas low sodium intake will elevate serum aldosterone. The reference intervals for serum aldosterone are based on normal sodium intake. Access complete set of age- and/or gender-specific reference intervals for this test in the [facility] ([employer]). Performed By: [employer] [address] [place] [address] Food Preservation Scientist: Jorge Daniels MD, PhD CLIA Number: [id number] Blood BLOOD SPECIMEN / Unknown Lab Venipuncture / Unknown 06/01/2024 4:11 AM CDT 06/01/2024 5:47 AM CDT Terry Mojica DO LAB - CHEMISTRY ORDE MARIAH [facility]) [address] [place] [address], [facility] * CORTISOL BLOOD AM (06/01/2024 4:11 AM CDT) Cortisol AM 15.9 3.7 - 19.4 ug/dL 06/01/2024 6:45 AM CDT [facility] Blood BLOOD SPECIMEN / Unknown Lab Venipuncture / Unknown 06/01/2024 4:11 AM CDT 06/01/2024 5:58 AM CDT Narrative [facility] - 06/01/2024 6:45 AM CDT Normal cortisol levels are generally highest in the morning hours and lowest from late evening through the early head start teacher hours (8 PM to 4 AM). The PM measurements of cortisol run approximately one-half to one-third of the AM values. Terry Mojica DO LAB - CHEMISTRY ORDE MARIAH Performing Organization Address [facility]/ZIP Co de Phone Number [address] [address], [place] [phone] * GLUCOSE - POINT OF CARE (05/31/2024 9:52 PM CDT) Glucose WB/POC 75 70 - 115 mg/dL 06/01/2024 7:37 AM CDT [facility] Specimen Type Arterial 06/01/2024 7:37 AM CDT [facility] Blood BLOOD SPECIMEN / Unknown 05/31/2024 9:52 PM CDT 06/01/2024 7:37 AM CDT Terry Mojica DO LAB - POINT OF CARE ORDERABLES [address] [address], [place] [phone] * LYTES (NA K CL) URINE RANDOM PANEL (05/31/2024 2:46 PM CDT) Sodium Urine 58 Not Established mmol/L 05/31/2024 2:53 PM CDT [facility] Potassium Urine 12.7 Not Established mmol/L 05/31/2024 2:53 PM CDT [facility] Chloride Random Urine 50 Not Established mmol/L 05/31/2024 2:53 PM CDT [facility] Urine URINE SPECIMEN OBTAINED BY CLEAN CATCH PROCEDURE / Unknown 05/31/2024 2:46 PM CDT 05/31/2024 2:46 PM CDT Fadumo King MD LAB - URINE CHEMISTR Y ORDERABLES Performing Organization Address City/State/[facility] Co de Phone Number [address] [address], [facility] [phone] * (ABNORMAL) URINALYSIS REFLEX TO MICROSCOPIC NO CULTURE (05/31/2024 2:35 PM CDT) Color UA Yellow Straw, Yellow 05/31/2024 2:47 PM CDT [facility] Clarity UA Slt Cloudy(A) Clear 05/31/2024 2:47 PM T [facility] Specific [place] UA 1.015 1.005 - 1.030 05/31/2024 2:47 PM T [facility] pH UA 6.0 5.0 - 8.0 pH 05/31/2024 2:47 PM T [facility] Protein UA Negative Negative 05/31/2024 2:47 PM T [facility] Glucose UA Negative Negative 05/31/2024 2:47 PM T [facility] Ketone UA Negative Negative 05/31/2024 2:47 PM T [facility] Bilirubin UA Negative Negative 05/31/2024 2:47 PM [facility] Blood UA Negative Negative 05/31/2024 2:47 PM T [facility] Nitrite UA Negative Negative 05/31/2024 2:47 PM T [facility] Leukocyte Esterase Negative Negative 05/31/2024 2:47 PM T [facility] Urobilinogen UA 2.0(A) Negative mg/dL 05/31/2024 2:47 PM CDT [facility] RBC UA 11-20(A) None Seen, 0-2, 3-5 /HPF 05/31/2024 2:47 PM CDT [facility] WBC UA 0-5 None Seen, 0-5 /HPF 05/31/2024 2:47 PM CDT [facility] Squamous Epithelial Cells UA None Seen None Seen, 0-2, 3-5 /HPF 05/31/2024 2:47 PM CDT [facility] Mucus UA 1+ /LPF 05/31/2024 2:47 PM CDT [facility] Amorphous Crystals Occasional( A) None /HPF 05/31/2024 2:47 PM T [facility] Urine URINE SPECIMEN OBTAINED BY CLEAN CATCH PROCEDURE / Unknown 05/31/2024 2:35 PM CDT 05/31/2024 2:35 PM CDT Narrative [facility] - 05/31/2024 2:47 PM CDT Chin Crews MD LAB - URINALYSIS ORD ERABLES [facility] [address] [place] [address], [facility] [phone] * URINE DRUG SCREEN IMMUNOASSAY (05/31/2024 2:35 PM CDT) Only the most recent of2 resultswithin the time period is included. Pathologist [facility] Amphetamines Screen Urine Negative Negative: < 1000 ng/mL 05/31/2024 2:[facility] Barbiturates Screen Urine Negative Negative: < 200 ng/mL 05/31/2024 2:58 PM [facility] Benzodiazepine Screen Urine Negative Negative: < 200 ng/mL 05/31/2024 2:58 PM [facility] Opiates Urine Negative Negative: < 300 ng/mL 05/31/2024 2:58 PM [facility] Cocaine Metabolites Urine Negative Negative: < 300 ng/mL 05/31/2024 2:58 PM CDT [facility] Phencyclidine Screen Urine Negative Negative: < 25 ng/ml 05/31/2024 2:58 PM T [facility] Cannabinoids Screen Urine Negative Negative: <50 ng/mL 05/31/2024 2:58 PM CDT [facility] Methadone Screen Urine Negative Negative: < 300 ng/mL 05/31/2024 2:58 PM CDT [facility] Fentanyl Screen Urine Negative Negative: <1.5 ng/mL 05/31/2024 2:58 PM CDT [facility] Urine URINE / Unknown Collection / Unknown 05/31/2024 2:35 PM CDT 05/31/2024 2:35 PM CDT Narrative [facility] - 05/31/2024 2:58 PM CDT The Urine Toxicology Screening Panel does not screen for Propoxyphene, Meprobamate, Carisoprodol, Trazodone, [id number] medications and/or volatiles (Acetone, Isopropanol, Methanol or Ethylene Glycol). Ethanol, Salicylate, Acetaminophen, Tricyclic Antidepressants and several therapeutic drugs may be individually assayed in serum or plasma specimen. Toxicology testing by the [facility] is an aid to medical diagnosis and treatment of patients. No documented chain of custody was maintained. Results are intended to be used for clinical purposes only. Chin Crews MD LAB - URINE CHEMISTR Y ORDERABLES [address] [address], [facility] [phone] * TSH REFLEX FREE T4 (05/31/2024 10:55 AM CDT) TSH 0.826 0.350 - 4.940 uIU/mL 05/31/2024 11:56 AM CDT [facility] Blood BLOOD SPECIMEN / Unknown Lab Venipuncture / Unknown 05/31/2024 10:55 AM CDT 05/31/2024 11:06 AM CDT Fadumo King MD LAB - CHEMISTRY CYNDI LEMUS [address] [address], [place] [phone] * TROPONIN-I HIGH SENSITIVE REFLEX 1HOUR (05/30/2024 6:24 AM CDT) Pathologist [facility] Troponin I High Sensitive <3 <=35 ng/L 05/30/2024 7:07 AM CDT [facility] Delta Troponin I HS 05/30/2024 7:07 AM CDT [facility] Comment:Delta value intentio ana m not calculated. Baseline to 1 hour specimen collection interval exceeded. Blood BLOOD SPECIMEN / Unknown Venipuncture / Unknown 05/30/2024 6:24 AM CDT 05/30/2024 6:29 AM CDT Chin Crews MD LAB - CHEMISTRY ORDE MARIAH Performing Organization Address City/[facility]/ZIP Co de Phone Number [facility] [address] [place] [address], [facility] [phone] * EKG 12-LEAD (05/29/2024 1:46 PM CDT) [facility] Ventricular Rate 73 BPM [facility] M[facility] Atrial Rate 73 BPM [facility] P-R Interval 142 ms [facility] QRS Duration ms 86 ms [facility] M[facility] Q-T Interval ms 382 ms [facility] M[facility] QTC Calculation (Bezet) 420 ms [facility] MUSE Calculated P [place] 71 degrees SL MUSE Calculated R [place] 69 degrees [facility] MUSE Calculated T [place] 73 degrees [facility] MUSE Interpretation EKG NORMAL SINUS RHYTHM NORMAL ECG NO PREVIOUS ECGS AVAILABLE Confirmed by MD DON, KRISTIAN ([id number]) on 05/30/2024 10:29:23 AM [facility] MUSE 05/29/2024 1:46 PM CDT 05/30/2024 10:29 AM CDT Chin Crews MD ECG ORDERABLES Performing Organization Address City/[facility]/ZIP Co de Phone Number [facility] * (ABNORMAL) PT-INR [facility] (05/29/2024 1:37 PM CDT) Only the most recent of3 resultswithin the time period is included. Pathologist [facility] PT 15.2(H) 12.1 - 14.8 Seconds 05/29/2024 2:10 PM CDT [facility] INR 1.2 See Comment 05/29/2024 2:10 PM CDT [facility] Comment:The suggested therap eutic range for standard coumadin (warfarin) therapy is an INR of 2.0-3.0. For high-risk patients (Mechanical Mitral Valve Prosthesis, etc.), the suggested prophylactic therapeutic range is an INR of 2.5-3.5. Blood BLOOD SPECIMEN / Unknown Venipuncture / Unknown 05/29/2024 1:37 PM CDT 05/29/2024 1:47 PM CDT Chin Crews MD LAB - COAGULATION OR DERABLES Performing Organization Address [facility]/ZIP Co de Phone Number [address] [address], [facility] [phone] * LACTIC ACID BLOOD REFLEX TO REPEAT (05/29/2024 1:37 PM CDT) Lactic Acid-Stat 0.8 <=2.0 mmol/L 05/29/2024 2:17 PM CDT [facility] Blood BLOOD SPECIMEN / Unknown Venipuncture / Unknown 05/29/2024 1:37 PM CDT 05/29/2024 1:56 PM CDT Chin Crews MD LAB - CHEMISTRY CYNDI LEMUS Performing Organization Address [facility]/ZIP Co de Phone Number [address] [address], [facility] [phone] * TROPONIN-I HIGH SENSITIVE BASELINE + 1HR (05/29/2024 1:37 PM CDT) Troponin I High Sensitive <3 <=35 ng/L 05/29/2024 2:21 PM CDT [facility] Blood BLOOD SPECIMEN / Unknown Venipuncture / Unknown 05/29/2024 1:37 PM CDT 05/29/2024 1:46 PM CDT Chin Crews MD LAB - CHEMISTRY CYNDI LEMUS Performing Organization Address City/[facility]/ZIP Co de Phone Number [place] [address] [place] [address], [facility] [phone] * (ABNORMAL) COMPREHENSIVE METABOLIC PANEL (05/29/2024 1:37 PM [facility]) BUN 12 7 - 26 mg/dL 05/29/2024 2:17 PM [facility] Creatinine 0.75 0.71 - 1.16 mg/dL 05/29/2024 2:17 PM [facility] Sodium 133(L) 136 - 145 mmol/L 05/29/2024 2:17 PM [facility] Potassium 3.5 3.5 - 4.5 mmol/L 05/29/2024 2:17 PM [facility] Chloride 98 98 - 107 mmol/L 05/29/2024 2:17 PM [facility] CO2 26 22 - 29 mmol/L 05/29/2024 2:17 PM [facility] Glucose 102 70 - 115 mg/dL 05/29/2024 2:17 PM [facility] Calcium 9.2 8.4 - 10.2 mg/dL 05/29/2024 2:17 PM [facility] Protein Total 6.8 6.0 - 8.3 g/dL 05/29/2024 2:17 PM [facility] Albumin 3.6 3.4 - 5.0 g/dL 05/29/2024 2:17 PM [facility] Bilirubin Total 0.6 0.2 - 1.2 mg/dL 05/29/2024 2:17 PM [facility] Alkaline Phosphatase 74 40 - 150 U/L 05/29/2024 2:17 PM [facility] ALT 21 5 - 55 U/L 05/29/2024 2:17 PM [facility] AST 18 5 - 34 U/L 05/29/2024 2:17 PM [facility] Anion Gap 9 6 - 16 05/29/2024 2:17 PM [facility] BUN/Creatinine Ratio 16 7 - 23 05/29/2024 2:17 PM [facility] Osmolality Calculated 276 275 - 295 mOsm/kg 05/29/2024 2:17 PM CDT [facility] Albumin/Globulin Ratio 1.1 1.1 - 2.3 05/29/2024 2:17 PM CDT [facility] eGFR by CKD-EPI >90 >=90 mL/min/1.7 3 m2 05/29/2024 2:17 PM CDT [facility] Blood BLOOD SPECIMEN / Unknown Venipuncture / Unknown 05/29/2024 1:37 PM CDT 05/29/2024 1:46 PM CDT Chin Crews MD LAB - CHEMISTRY CYNDI LEMUS [facility] [address] [place] [address], [place] [phone] * ALCOHOL ETHYL BLOOD (05/29/2024 1:37 PM CDT) Only the most recent of3 resultswithin the time period is included. Ethanol (mg/dL) <10 <10 mg/dL 2:17 PM CDT [facility] Ethanol Calculated (g/dL) <0.010 <=0.010 g/dL 05/29/2024 2:17 PM CDT [facility] Blood BLOOD SPECIMEN / Unknown Venipuncture / Unknown 05/29/2024 1:37 PM CDT 05/29/2024 1:46 PM CDT Narrative [facility] - 05/29/2024 2:17 PM CDT Ethanol Interp <10: None Detected. Depression of GLAUCOMA SPECIALIST: >100 mg/dl Potentially Critical: >250 mg/dl Potentially Fatal >400 mg/dl Ethanol in the patient's blood will contribute to the osmolar gap. Ethanol's contribution to the osmolar gap can be estimated by dividing the concentration of ethanol in mg/dL by 4.6. This test is for clinical use only and does not equal a JAREN for legal purposes. Chin Crews MD LAB - CHEMISTRY CYNDI LEMUS [facility] [address] [place] [address], [place] [phone] * XR CHEST 1VW PORTABLE (05/29/2024 1:23 PM CDT) Only the most recent of3 resultswithin the time period is included. Anatomical Region Laterality Modality Chest Radiographic Gracie ging 05/29/2024 2:11 PM CDT Impressions 05/29/2024 2:11 PM CDT IMPRESSION: No acute cardiopulmonary abnormalities. > Interpreting Provider: Artie Vivar DO on 05/29/2024 2:11 PM Narrative 05/29/2024 2:11 PM CDT PROCEDURE: XR CHEST 1VW PORTABLE DATE/TIME OF EXAM: 05/29/2024 1:23 PM CLINICAL INFORMATION: None relevant/not provided if blank. Indication: R40.4: Transient alteration of awareness Additional History: COMPARISON: 05/26/2024. FINDINGS: Single frontal view of the chest demonstrates a normal sized heart and pulmonary vasculature. No focal consolidation, pleural effusion or pneumothorax. No acute osseous abnormalities. Procedure Note Artie Vivar DO - 05/29/2024 PROCEDURE: XR CHEST 1VW PORTABLE DATE/TIME OF EXAM: 05/29/2024 1:23 PM CLINICAL INFORMATION: None relevant/not provided if blank. Indication: R40.4: Transient alteration of awareness Additional History: COMPARISON: 05/26/2024. FINDINGS: Single frontal view of the chest demonstrates a normal sized heart and pulmonary vasculature. No focal consolidation, pleural effusion or pneumothorax. No acute osseous abnormalities. IMPRESSION: No acute cardiopulmonary abnormalities. > Interpreting Provider: Artie Vivar DO on 05/29/2024 2:11 PM Chin Crews MD DIAGNOSTIC IMAGING O RDERABLES * CT HEAD WO CONTRAST (05/29/2024 1:16 PM CDT) Only the most recent of4 resultswithin the time period is included. Anatomical Region Laterality Modality Head Computed Tomogra phy 05/29/2024 1:22 PM CDT Impressions 05/29/2024 2:33 PM CDT IMPRESSION: 1.Redemonstrated sequela of traumatic brain injury with minimal interval change in trace extra-axial blood products along the right cerebral convexity, falx and trileaflet. 2.Increased hypodensity the right anterior temporal lobe which likely represent evolving changes of cerebral contusion. 3.Redemonstration of diffuse bilateral sulcal effacement compatible was global brain edema. No significant midline shift. 4.Redemonstrated is a nondisplaced left calvarial fracture involving the left parietal and temporal bones and fractures of the beach of the right maxillary sinus. The report is dictated by Sebas Quintanilla MD (residential gas heat technician) I, Javid Velazquez MD have personally reviewed and interpreted this examination/study. > Interpreting Provider: Javid Velazquez MD on 05/29/2024 2:33 PM Narrative 05/29/2024 2:33 PM CDT PROCEDURE: CT HEAD WO CONTRAST, DATE/TIME OF EXAM: 05/29/2024 1:17 PM, LOCATION [facility] INDICATION: R40.4: Transient alteration of awareness ADDITIONAL CLINICAL INFORMATION: Ordering Provider Reason For Exam: head bleed Technologist Note: None. Additional: None. EXAMINATION: Computed tomography (CT) of the head without contrast TECHNIQUE: CT of the head was performed without contrast according to standard protocol. CT dose reduction technique was used, including Automated Exposure Control. COMPARISON: CT angio brain and neck 05/26/2024. FINDINGS: Redemonstration of evolving sequelae of TBI with multi-compartmental intracranial hemorrhages and hemorrhagic contusions as follows: Trace subarachnoid/subdural blood products are seen along the right cerebral convexity. Trace subdural blood products are also seen layering along the right falx and the right tentorial leaflet. Overall minimally changed compared to prior. Increased hypodensity of the right anterior temporal lobe which likely represent evolving changes of cerebral contusion. Mild bilateral sulcal effacement, unchanged likely representing global brain edema. No new acute intracranial hemorrhage or intra- or extra-axial fluid collections are identified. The ventricles are of normal size, shape, and morphology. The basal cisterns are patent. No significant midline shift is seen. The cho-white matter differentiation otherwise appears normal. Redemonstrated acute fractures of multiple beach of the right maxillary sinus which remains nearly completely opacified. The bilateral sphenoid sinuses are partially opacified. The left mastoid air cell and middle ear cavity are partially opacified like prior. Clear right mastoid air cells and middle ear cavity. The orbits appear grossly unremarkable. Redemonstrated a nondisplaced left calvarial fracture involving the left parietal and temporal bone with extension through the left mastoid air cell, middle ear and carotid canal, which are detailed on the presentation CT scans. Procedure Note Javid Velazquez MD - 05/29/2024 PROCEDURE: CT HEAD WO CONTRAST, DATE/TIME OF EXAM: 05/29/2024 1:17 PM, LOCATION [facility] INDICATION: R40.4: Transient alteration of awareness ADDITIONAL CLINICAL INFORMATION: Ordering Provider Reason For Exam: head bleed Technologist Note: None. Additional: None. EXAMINATION: Computed tomography (CT) of the head without contrast TECHNIQUE: CT of the head was performed without contrast according to standard protocol. CT dose reduction technique was used, including Automated Exposure Control. COMPARISON: CT angio brain and neck 05/26/2024. FINDINGS: Redemonstration of evolving sequelae of TBI with multi-compartmental intracranial hemorrhages and hemorrhagic contusions as follows: Trace subarachnoid/subdural blood products are seen along the right cerebral convexity. Trace subdural blood products are also seen layering alongthe right falx and the right tentorial leaflet. Overall minimally changed compared to prior. Increased hypodensity of the right anterior temporal lobe which likely represent evolving changes of cerebral contusion. Mild bilateral sulcal effacement, unchanged likely representing global brain edema. No new acute intracranial hemorrhage or intra- or extra-axial fluid collections are identified. The ventricles are of normal size, shape,and morphology. The basal cisterns are patent. No significant midline shiftis seen. The cho-white matter differentiation otherwise appears normal. Redemonstrated acute fractures of multiple beach of the right maxillary sinus which remains nearly completely opacified. The bilateral sphenoid sinuses are partially opacified. The left mastoid air cell and middleear cavity are partially opacified like prior. Clear right mastoid air cells and middle ear cavity. The orbits appear grossly unremarkable. Redemonstrated a nondisplaced left calvarial fracture involving the left parietal and temporal bone with extension through the left mastoid air cell, middle ear and carotid canal, which are detailed on thepresentation CT scans. IMPRESSION: 1.Redemonstrated sequela of traumatic brain injury with minimal interval change in trace extra-axial blood products along the right cerebral convexity, falx and trileaflet. 2.Increased hypodensity the right anterior temporal lobe which likely represent evolving changes of cerebral contusion. 3.Redemonstration of diffuse bilateral sulcal effacement compatible was global brain edema. No significant midline shift. 4.Redemonstrated is a nondisplaced left calvarial fracture involving the left parietal and temporal bones and fractures of the beach of the right maxillary sinus. The report is dictated by Sebas Quintanilla MD (residential gas heat technician) Javid Weinberg MD have personally reviewed and interpretedthis examination/study. > Interpreting Provider: Javid Velazquez MD on 05/29/2024 2:33 PM Chin Crews MD CT ORDERABLES * CT Angio Brain And Neck (05/26/2024 11:07 AM CDT) Anatomical Region Laterality Modality Head Computed Tomogra phy 05/26/2024 11:2 8 AM CDT Impressions 05/26/2024 1:03 PM CDT IMPRESSION: 1.Grossly unchanged sequelae of TBI with a small volume of right subdural and subarachnoid hemorrhages described above into calvarial fracture which notably involves the left carotid canal. 2.No large arterial injury or dissection is identified in the head or neck. The report is dictated by Ramses Carney DO, (residential gas heat technician) Giuseppe Weinberg MD have personally reviewed and interpreted this examination/study. > Interpreting Provider: Giuseppe Zuñiga MD on 05/26/2024 1:03 PM Narrative 05/26/2024 1:03 PM CDT PROCEDURE: CT ANGIO BRAIN AND NECK, DATE/TIME OF EXAM: 05/26/2024 11:07 AM, LOCATION [facility] INDICATION: S02.19XA: Closed sphenoid sinus fracture, initial encounter (HCC) S02.19XA: Closed fracture of temporal bone, initial encounter ([facility]) ADDITIONAL CLINICAL INFORMATION: Ordering Provider Reason For Exam: carotid sinus injury Technologist Note: Additional: EXAMINATION: 1. Computed tomographic (CT) angiography of the head without and with contrast 2. CT angiography of the neck with contrast TECHNIQUE: CT of the head was performed without contrast according to standard protocol. Then CT angiography of the head and neck was obtained after the uneventful administration of mL Isovue-370 intravenous contrast. Three dimensional postprocessing was performed by the technologist and sent to the workstation for review. Stenosis measurements are based on NASCET criteria. CT dose reduction technique was used, including Automated Exposure Control. COMPARISON: Multiple prior exams including head CT and temporal bone CT dated 05/25/2024. FINDINGS: Non-angiographic findings: Redistribution and decreased size of the small acute subdural hematoma along the right cerebral convexity with minimal extension along the right tentorial leaflet and falx. Trace subarachnoid hemorrhage scattered within the right cerebral sulci. There is associated mass effect/edema and resulting global sulcal effacement but no significant midline shift. The ventricles are nondilated. The cho-white matter differentiation is normal. Redemonstration of cerebral edema, right greater than left. Redemonstrated acute fracture at the floor of the right orbit with displacement of the right globe posteriorly relative to the left globe The right maxillary sinus is completely opacified, and the remaining paranasal sinuses are partially opacified. The left mastoid air cells are partially opacified with blood related to acute left temporal bone fracture. Left scalp hematoma. Redemonstrated nondisplaced/minimally displaced left calvarial fracture extending along the left parietal bone, into the left temporal bone and the sphenoid bone/sinus. Mild paraseptal emphysematous changes of the lung apices. Angiographic findings: Neck: The visible aortic arch appears normal. The configuration of the brachiocephalic vessels is typical. The innominate artery and both subclavian arteries appear normal. The right common and internal carotid arteries as well as the right carotid bifurcation are patent. The left common and internal carotid arteries as well as the left carotid bifurcation are patent. The cervical vertebral arteries are patent. Head: The distal internal carotid arteries are patent. The anterior cerebral arteries are patent. The middle cerebral arteries are patent. The posterior cerebral arteries are patent. The distal vertebral arteries are patent. The basilar artery is patent. No aneurysms, vascular occlusions, or intracranial stenoses are identified. Procedure Note Giuseppe Zuñiga MD - 05/26/2024 PROCEDURE: CT ANGIO BRAIN AND NECK, DATE/TIME OF EXAM: 05/26/2024 11:07 AM, LOCATION [facility] INDICATION: S02.19XA: Closed sphenoid sinus fracture, initial encounter (HCC) S02.19XA: Closed fracture of temporal bone, initial encounter ([facility]) ADDITIONAL CLINICAL INFORMATION: Ordering Provider Reason For Exam: carotid sinus injury Technologist Note: Additional: EXAMINATION: 1. Computed tomographic (CT) angiography of the head without and with contrast 2. CT angiography of the neck with contrast TECHNIQUE: CT of the head was performed without contrast according to standard protocol. Then CT angiography of the head and neck was obtained after the uneventful administration of mL Isovue-370 intravenouscontrast. Three dimensional postprocessing was performed by the technologist andsent to the workstation for review. Stenosis measurements are based on NASCET criteria. CT dose reduction technique was used, including Automated Exposure Control. COMPARISON: Multiple prior exams including head CT and temporal bone CT dated 05/25/2024. FINDINGS: Non-angiographic findings: Redistribution and decreased size of the small acute subdural hematoma along the right cerebral convexity with minimal extension along theright tentorial leaflet and falx. Trace subarachnoid hemorrhage scatteredwithin the right cerebral sulci. There is associated mass effect/edema and resulting global sulcal effacement but no significant midline shift. The ventricles are nondilated. The cho-white matter differentiation isnormal. Redemonstration of cerebral edema, right greater than left. Redemonstrated acute fracture at the floor of the right orbit with displacement of the right globe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 orbits, and paranasal sinuses was performed without contrast according to standard protocol. Reformatted axial, sagittal, and coronal images of the thoracic and lumbar spine were obtained by the technologist from a concurrently performed body CT and sent to the workstation for review. CT dose reduction technique was used, including Automated Exposure Control. COMPARISON: FINDINGS: Head: An acute subdural hematoma along the right cerebral convexity measuring up to 3 mm in thickness (series 7 image 34). There are subarachnoid blood products in the adjacent cerebral sulci. This is causing mild local mass effect with effacement of adjacent sulci and the right sylvian fissure. There is 3 mm of leftward midline shift. The ventricles appear slitlike with thin sylvian fissures which can be seen in the setting of diffuse cerebral edema particularly with trauma. Air foci within the bilateral cavernous sinuses may be secondary to contrast injection. Soft tissue swelling over the left parietal region measuring 1.2 cm in maximal thickness. There is an underlying nondisplaced skull fracture of the left parietal bone extending into the left temporal bone as a longitudinal temporal bone fracture into the middle ear cavity and the tegmen tympanum/mastoideum with partial opacification of the mastoid air cells and blood products in the acute blood products in the middle and external auditory canals. Fracture line involves the left mandibular fossa, the left petrous apex and the left carotid canal. A small amount of pneumocephalus in the middle cranial fossa. Maxillofacial: Multiple facial fractures as described below: Mildly displaced fracture of the right inferior orbital rim and the inferior wall of the right orbits. Opacification of the right maxillary sinus may represent hemorrhage. Temporal bone fractures described above with fracture line extending into the posterior lateral beach, the floor and the right lateral wall of the sphenoid sinuses. The fracture appears to also involve the left carotid canal. A small amount air is seen within the left carotid canal anteriorly. A CT angiogram of the neck is recommended to exclude vascular injury. Nondisplaced fractures bilateral nasal bones. The globes, optic nerves and extraocular muscles are normal. There is complete opacification of the right maxillary sinus and partial opacification of the ethmoid air cells and sphenoid sinuses likely resulting acute blood products. The hard palate, mandible, and temporomandibular joints appear normal. Cervical spine: The alignment is normal. Vertebral bodies are normal in height without evidence of acute fracture. The craniocervical junction is normal. The intervertebral discs appear normal. No central canal stenosis is seen. The facets appear normal. The uncovertebral joints appear normal. No neural foraminal stenosis is seen. No soft tissue abnormality is identified. Thoracic spine: The alignment is normal. Vertebral bodies are normal in height without evidence of acute fracture. The intervertebral discs appear normal. No central canal stenosis is seen. The facets appear normal. No neural foraminal stenosis is seen. No soft tissue abnormality is identified. Lumbar spine: The alignment is normal. Vertebral bodies are normal in height without evidence of acute fracture. The intervertebral discs appear normal. No central canal stenosis is seen. The facets appear normal. No neural foraminal stenosis is seen. No soft tissue abnormality is identified. Procedure Note Giuseppe Zuñiga MD - 05/25/2024 PROCEDURE: CT LUMBAR SPINE WO CONTRAST, CT THORACIC SPINE WO CONTRAST,CT CERVICAL SPINE WO CONTRAST, CT FACIAL BONES WO CONTRAST, CT HEAD WO CONTRAST, DATE/TIME OF EXAM: 05/25/2024 3:31 AM, LOCATION [facility] INDICATION: Trauma EXAMINATION: 1. Computed tomography (CT) of the head without contrast 2. CT of the maxillofacial bones, orbits, and paranasal sinuses without contrast 3. CT of the cervical spine without contrast 4. CT of the thoracic spine without contrast 5. CT of the lumbar spine without contrast ADDITIONAL CLINICAL INFORMATION: Ordering Provider Reason For Exam: Technologist Note: Additional: TECHNIQUE: CT of the head, cervical spine, and maxillofacial bones,orbits, and paranasal sinuses was performed without contrast according tostandard protocol. Reformatted axial, sagittal, and coronal images of thethoracic and lumbar spine were obtained by the technologist from a concurrently performed body CT and sent to the workstation for review. CT dosereduction technique was used, including Automated Exposure Control. COMPARISON: FINDINGS: Head: An acute subdural hematoma along the right cerebral convexity measuringup to 3 mm in thickness (series 7 image 34). There are subarachnoid blood products in the adjacent cerebral sulci. This is causing mild local mass effect with effacement of adjacent sulci and the right sylvian fissure. There is 3 mm of leftward midline shift. The ventricles appear slitlike with thin sylvian fissures which can be seen in the setting of diffuse cerebral edema particularly with trauma. Air foci within the bilateral cavernous sinuses may be secondary to contrast injection. Soft tissue swelling over the left parietal region measuring 1.2 cm in maximal thickness. There is an underlying nondisplaced skull fracture of the left parietal bone extending into the left temporal bone as a longitudinal temporal bone fracture into the middle ear cavity and the tegmen tympanum/mastoideum with partial opacification of the mastoid air cells and blood products in the acute blood products in the middle and external auditory canals. Fracture line involves the left mandibularfossa, the left petrous apex and the left carotid canal. A small amount of pneumocephalus in the middle cranial fossa. Maxillofacial: Multiple facial fractures as described below: Mildly displaced fracture of the right inferior orbital rim and the inferior wall of the right orbits. Opacification of the right maxillary sinus may represent hemorrhage. Temporal bone fractures described above with fracture line extendinginto the posterior lateral beach, the floor and the right lateral wall of the sphenoid sinuses. The fracture appears to also involve the left carotid canal. A small amount air is seen within the left carotid canalanteriorly. A CT angiogram of the neck is recommended to exclude vascular injury. Nondisplaced fractures bilateral nasal bones. The globes, optic nerves and extraocular muscles are normal. There is complete opacification of the right maxillary sinus and partial opacification of the ethmoid air cells and sphenoid sinuses likely resulting acute blood products. The hard palate, mandible, and temporomandibular joints appear normal. Cervical spine: The alignment is normal. Vertebral bodies are normal in height without evidence of acute fracture. The craniocervical junction is normal. The intervertebral discs appear normal. No central canal stenosis is seen.The facets appear normal. The uncovertebral joints appear normal. No neural foraminal stenosis is seen. No soft tissue abnormality is identified. Thoracic spine: The alignment is normal. Vertebral bodies are normal in height without evidence of acute fracture. The intervertebral discs appear normal. No central canal stenosis is seen. The facets appear normal. No neural foraminal stenosis is seen. No soft tissue abnormality is identified. Lumbar spine: The alignment is normal. Vertebral bodies are normal in height without evidence of acute fracture. The intervertebral discs appear normal. No central canal stenosis is seen. The facets appear normal. No neural foraminal stenosis is seen. No soft tissue abnormality is identified. IMPRESSION: 1.Acute subdural hematoma along the right cerebral convexity measuringup to 3 mm in thickness (series 7 image 34). 2.Small-volume acute subarachnoid blood products in the right cerebral sulci. 3.Mild mass effect with effacement of adjacent sulci and the rightsylvian fissure and 3 mm of leftward midline shift. The ventricles appearslitlike with thin sylvian fissures which can be seen in the setting of diffuse cerebral edema particularly with trauma. 4.A nondisplaced acute fracture of the left parietal bone extending into the left temporal bone involving the left mastoid, the tegmen tympanumand mastoideum, the left middle ear cavity and the left petrous apex with further anterior extension of the fracture to involve the left carotid canal, as well as the posterior lateral beach, the floor and the right lateral wall of the sphenoid sinuses. A small amount air is seen withinthe left carotid canal anteriorly. A CT angiogram of the neck is recommendedto exclude vascular injury. 5.Mildly displaced fracture of the right inferior orbital rim and the inferior wall of the right orbits. Opacification of the right maxillary sinus may represent hemorrhage. 6.Nondisplaced fractures bilateral nasal bones. 7.No evidence of acute fracture in the cervical, thoracic, or lumbarspine. Brain injury guidelines: Skull fracture: Nondisplaced Subdural hematoma: </=4mm. Epidural hematoma: No epidural hematoma. Intraparenchymal hemorrhage: No intraparenchymal hemorrhage. Subarachnoid hemorrhage: Localized-single hemisphere. Intraventricular hemorrhage: No. Midline shift: Yes. These findings were discussed in detail with the patient'Dr Hesham mahajan by Dr. Ingris Bravo via telephone at 05/25/2024 3:51 AMwith readback comprehension and verification. The report is dictated by Ingris Bravo Dr, MD (residential gas heat technician) I, Giuseppe Zuñiga MD have personally reviewed and interpreted this examination/study. > Interpreting Provider: Giuseppe Zuñiga MD on 05/25/2024 10:22 AM Nick Enriquez MD CT ORDERABLES * CT CERVICAL SPINE WO CONTRAST - C-Spine Trauma, Spine fracture (05/25/2024 3:30 AM CDT) Only the most recent of2 resultswithin the time period is included. Anatomical Region Laterality Modality Spine Computed Tomogra phy 05/25/2024 3:28 AM CDT Impressions 05/25/2024 10:22 AM CDT IMPRESSION: 1.Acute subdural hematoma along the right cerebral convexity measuring up to 3 mm in thickness (series 7 image 34). 2.Small-volume acute subarachnoid blood products in the right cerebral sulci. 3.Mild mass effect with effacement of adjacent sulci and the right sylvian fissure and 3 mm of leftward midline shift. The ventricles appear slitlike with thin sylvian fissures which can be seen in the setting of diffuse cerebral edema particularly with trauma. 4.A nondisplaced acute fracture of the left parietal bone extending into the left temporal bone involving the left mastoid, the tegmen tympanum and mastoideum, the left middle ear cavity and the left petrous apex with further anterior extension of the fracture to involve the left carotid canal, as well as the posterior lateral beach, the floor and the right lateral wall of the sphenoid sinuses. A small amount air is seen within the left carotid canal anteriorly. A CT angiogram of the neck is recommended to exclude vascular injury. 5.Mildly displaced fracture of the right inferior orbital rim and the inferior wall of the right orbits. Opacification of the right maxillary sinus may represent hemorrhage. 6.Nondisplaced fractures bilateral nasal bones. 7.No evidence of acute fracture in the cervical, thoracic, or lumbar spine. Brain injury guidelines: Skull fracture: Nondisplaced Subdural hematoma: </=4mm. Epidural hematoma: No epidural hematoma. Intraparenchymal hemorrhage: No intraparenchymal hemorrhage. Subarachnoid hemorrhage: Localized-single hemisphere. Intraventricular hemorrhage: No. Midline shift: Yes. These findings were discussed in detail with the patient's care provider, Dr Dahl by Dr. Ingris Bravo via telephone at 05/25/2024 3:51 AM with readback comprehension and verification. The report is dictated by Ingris Bravo Dr, MD (residential gas heat technician) I, Giuseppe Zuñiga MD have personally reviewed and interpreted this examination/study. > Interpreting Provider: Giuseppe Zuñiga MD on 05/25/2024 10:22 AM Narrative 05/25/2024 10:22 AM CDT PROCEDURE: CT LUMBAR SPINE WO CONTRAST, CT THORACIC SPINE WO CONTRAST, CT CERVICAL SPINE WO CONTRAST, CT FACIAL BONES WO CONTRAST, CT HEAD WO CONTRAST, DATE/TIME OF EXAM: 05/25/2024 3:31 AM, LOCATION [facility] INDICATION: Trauma EXAMINATION: 1. Computed tomography (CT) of the head without contrast 2. CT of the maxillofacial bones, orbits, and paranasal sinuses without contrast 3. CT of the cervical spine without contrast 4. CT of the thoracic spine without contrast 5. CT of the lumbar spine without contrast ADDITIONAL CLINICAL INFORMATION: Ordering Provider Reason For Exam: Technologist Note: Additional: TECHNIQUE: CT of the head, cervical spine, and maxillofacial bones, orbits, and paranasal sinuses was performed without contrast according to standard protocol. Reformatted axial, sagittal, and coronal images of the thoracic and lumbar spine were obtained by the technologist from a concurrently performed body CT and sent to the workstation for review. CT dose reduction technique was used, including Automated Exposure Control. COMPARISON: FINDINGS: Head: An acute subdural hematoma along the right cerebral convexity measuring up to 3 mm in thickness (series 7 image 34). There are subarachnoid blood products in the adjacent cerebral sulci. This is causing mild local mass effect with effacement of adjacent sulci and the right sylvian fissure. There is 3 mm of leftward midline shift. The ventricles appear slitlike with thin sylvian fissures which can be seen in the setting of diffuse cerebral edema particularly with trauma. Air foci within the bilateral cavernous sinuses may be secondary to contrast injection. Soft tissue swelling over the left parietal region measuring 1.2 cm in maximal thickness. There is an underlying nondisplaced skull fracture of the left parietal bone extending into the left temporal bone as a longitudinal temporal bone fracture into the middle ear cavity and the tegmen tympanum/mastoideum with partial opacification of the mastoid air cells and blood products in the acute blood products in the middle and external auditory canals. Fracture line involves the left mandibular fossa, the left petrous apex and the left carotid canal. A small amount of pneumocephalus in the middle cranial fossa. Maxillofacial: Multiple facial fractures as described below: Mildly displaced fracture of the right inferior orbital rim and the inferior wall of the right orbits. Opacification of the right maxillary sinus may represent hemorrhage. Temporal bone fractures described above with fracture line extending into the posterior lateral beach, the floor and the right lateral wall of the sphenoid sinuses. The fracture appears to also involve the left carotid canal. A small amount air is seen within the left carotid canal anteriorly. A CT angiogram of the neck is recommended to exclude vascular injury. Nondisplaced fractures bilateral nasal bones. The globes, optic nerves and extraocular muscles are normal. There is complete opacification of the right maxillary sinus and partial opacification of the ethmoid air cells and sphenoid sinuses likely resulting acute blood products. The hard palate, mandible, and temporomandibular joints appear normal. Cervical spine: The alignment is normal. Vertebral bodies are normal in height without evidence of acute fracture. The craniocervical junction is normal. The intervertebral discs appear normal. No central canal stenosis is seen. The facets appear normal. The uncovertebral joints appear normal. No neural foraminal stenosis is seen. No soft tissue abnormality is identified. Thoracic spine: The alignment is normal. Vertebral bodies are normal in height without evidence of acute fracture. The intervertebral discs appear normal. No central canal stenosis is seen. The facets appear normal. No neural foraminal stenosis is seen. No soft tissue abnormality is identified. Lumbar spine: The alignment is normal. Vertebral bodies are normal in height without evidence of acute fracture. The intervertebral discs appear normal. No central canal stenosis is seen. The facets appear normal. No neural foraminal stenosis is seen. No soft tissue abnormality is identified. Procedure Note Giuseppe Zuñiga MD - 05/25/2024 PROCEDURE: CT LUMBAR SPINE WO CONTRAST, CT THORACIC SPINE WO CONTRAST,CT CERVICAL SPINE WO CONTRAST, CT FACIAL BONES WO CONTRAST, CT HEAD WO CONTRAST, DATE/TIME OF EXAM: 05/25/2024 3:31 AM, LOCATION [facility] INDICATION: Trauma EXAMINATION: 1. Computed tomography (CT) of the head without contrast 2. CT of the maxillofacial bones, orbits, and paranasal sinuses without contrast 3. CT of the cervical spine without contrast 4. CT of the thoracic spine without contrast 5. CT of the lumbar spine without contrast ADDITIONAL CLINICAL INFORMATION: Ordering Provider Reason For Exam: Technologist Note: Additional: TECHNIQUE: CT of the head, cervical spine, and maxillofacial bones,orbits, and paranasal sinuses was performed without contrast according tostandard protocol. Reformatted axial, sagittal, and coronal images of thethoracic and lumbar spine were obtained by the technologist from a concurrently performed body CT and sent to the workstation for review. CT dosereduction technique was used, including Automated Exposure Control. COMPARISON: FINDINGS: Head: An acute subdural hematoma along the right cerebral convexity measuringup to 3 mm in thickness (series 7 image 34). There are subarachnoid blood products in the adjacent cerebral sulci. This is causing mild local mass effect with effacement of adjacent sulci and the right sylvian fissure. There is 3 mm of leftward midline shift. The ventricles appear slitlike with thin sylvian fissures which can be seen in the setting of diffuse cerebral edema particularly with trauma. Air foci within the bilateral cavernous sinuses may be secondary to contrast injection. Soft tissue swelling over the left parietal region measuring 1.2 cm in maximal thickness. There is an underlying nondisplaced skull fracture of the left parietal bone extending into the left temporal bone as a longitudinal temporal bone fracture into the middle ear cavity and the tegmen tympanum/mastoideum with partial opacification of the mastoid air cells and blood products in the acute blood products in the middle and external auditory canals. Fracture line involves the left mandibularfossa, the left petrous apex and the left carotid canal. A small amount of pneumocephalus in the middle cranial fossa. Maxillofacial: Multiple facial fractures as described below: Mildly displaced fracture of the right inferior orbital rim and the inferior wall of the right orbits. Opacification of the right maxillary sinus may represent hemorrhage. Temporal bone fractures described above with fracture line extendinginto the posterior lateral beach, the floor and the right lateral wall of the sphenoid sinuses. The fracture appears to also involve the left carotid canal. A small amount air is seen within the left carotid canalanteriorly. A CT angiogram of the neck is recommended to exclude vascular injury. Nondisplaced fractures bilateral nasal bones. The globes, optic nerves and extraocular muscles are normal. There is complete opacification of the right maxillary sinus and partial opacification of the ethmoid air cells and sphenoid sinuses likely resulting acute blood products. The hard palate, mandible, and temporomandibular joints appear normal. Cervical spine: The alignment is normal. Vertebral bodies are normal in height without evidence of acute fracture. The craniocervical junction is normal. The intervertebral discs appear normal. No central canal stenosis is seen.The facets appear normal. The uncovertebral joints appear normal. No neural foraminal stenosis is seen. No soft tissue abnormality is identified. Thoracic spine: The alignment is normal. Vertebral bodies are normal in height without evidence of acute fracture. The intervertebral discs appear normal. No central canal stenosis is seen. The facets appear normal. No neural foraminal stenosis is seen. No soft tissue abnormality is identified. Lumbar spine: The alignment is normal. Vertebral bodies are normal in height without evidence of acute fracture. The intervertebral discs appear normal. No central canal stenosis is seen. The facets appear normal. No neural foraminal stenosis is seen. No soft tissue abnormality is identified. IMPRESSION: 1.Acute subdural hematoma along the right cerebral convexity measuringup to 3 mm in thickness (series 7 image 34). 2.Small-volume acute subarachnoid blood products in the right cerebral sulci. 3.Mild mass effect with effacement of adjacent sulci and the rightsylvian fissure and 3 mm of leftward midline shift. The ventricles appearslitlike with thin sylvian fissures which can be seen in the setting of diffuse cerebral edema particularly with trauma. 4.A nondisplaced acute fracture of the left parietal bone extending into the left temporal bone involving the left mastoid, the tegmen tympanumand mastoideum, the left middle ear cavity and the left petrous apex with further anterior extension of the fracture to involve the left carotid canal, as well as the posterior lateral beach, the floor and the right lateral wall of the sphenoid sinuses. A small amount air is seen withinthe left carotid canal anteriorly. A CT angiogram of the neck is recommendedto exclude vascular injury. 5.Mildly displaced fracture of the right inferior orbital rim and the inferior wall of the right orbits. Opacification of the right maxillary sinus may represent hemorrhage. 6.Nondisplaced fractures bilateral nasal bones. 7.No evidence of acute fracture in the cervical, thoracic, or lumbarspine. Brain injury guidelines: Skull fracture: Nondisplaced Subdural hematoma: </=4mm. Epidural hematoma: No epidural hematoma. Intraparenchymal hemorrhage: No intraparenchymal hemorrhage. Subarachnoid hemorrhage: Localized-single hemisphere. Intraventricular hemorrhage: No. Midline shift: Yes. These findings were discussed in detail with the patient's careprovider, Dr Dahl by Dr. Ingris Bravo via telephone at 05/25/2024 3:51 AMwith readback comprehension and verification. The report is dictated by Ingris Bravo Dr, MD (residential gas heat technician) I, Giuseppe Zuñiga MD have personally reviewed and interpreted this examination/study. > Interpreting Provider: Giuseppe Zuñiga MD on 05/25/2024 10:22 AM Nick Enriquez MD CT ORDERABLES * CT FACIAL BONES WO CONTRAST - Facial trauma, fx suspected, blunt (05/25/2024 3:30 AM CDT) Only the most recent of2 resultswithin the time period is included. Anatomical Region Laterality Modality Head Computed Tomogra phy 05/25/2024 3:28 AM CDT Impressions 05/25/2024 10:22 AM CDT IMPRESSION: 1.Acute subdural hematoma along the right cerebral convexity measuring up to 3 mm in thickness (series 7 image 34). 2.Small-volume acute subarachnoid blood products in the right cerebral sulci. 3.Mild mass effect with effacement of adjacent sulci and the right sylvian fissure and 3 mm of leftward midline shift. The ventricles appear slitlike with thin sylvian fissures which can be seen in the setting of diffuse cerebral edema particularly with trauma. 4.A nondisplaced acute fracture of the left parietal bone extending into the left temporal bone involving the left mastoid, the tegmen tympanum and mastoideum, the left middle ear cavity and the left petrous apex with further anterior extension of the fracture to involve the left carotid canal, as well as the posterior lateral beach, the floor and the right lateral wall of the sphenoid sinuses. A small amount air is seen within the left carotid canal anteriorly. A CT angiogram of the neck is recommended to exclude vascular injury. 5.Mildly displaced fracture of the right inferior orbital rim and the inferior wall of the right orbits. Opacification of the right maxillary sinus may represent hemorrhage. 6.Nondisplaced fractures bilateral nasal bones. 7.No evidence of acute fracture in the cervical, thoracic, or lumbar spine. Brain injury guidelines: Skull fracture: Nondisplaced Subdural hematoma: </=4mm. Epidural hematoma: No epidural hematoma. Intraparenchymal hemorrhage: No intraparenchymal hemorrhage. Subarachnoid hemorrhage: Localized-single hemisphere. Intraventricular hemorrhage: No. Midline shift: Yes. These findings were discussed in detail with the patient's care provider, Dr Dahl by Dr. Ingris Bravo via telephone at 05/25/2024 3:51 AM with readback comprehension and verification. The report is dictated by Ingris Bravo Dr, MD (residential gas heat technician) I, Giuseppe Zuñiga MD have personally reviewed and interpreted this examination/study. > Interpreting Provider: Giuseppe Zuñiga MD on 05/25/2024 10:22 AM Narrative 05/25/2024 10:22 AM CDT PROCEDURE: CT LUMBAR SPINE WO CONTRAST, CT THORACIC SPINE WO CONTRAST, CT CERVICAL SPINE WO CONTRAST, CT FACIAL BONES WO CONTRAST, CT HEAD WO CONTRAST, DATE/TIME OF EXAM: 05/25/2024 3:31 AM, LOCATION [facility] INDICATION: Trauma EXAMINATION: 1. Computed tomography (CT) of the head without contrast 2. CT of the maxillofacial bones, orbits, and paranasal sinuses without contrast 3. CT of the cervical spine without contrast 4. CT of the thoracic spine without contrast 5. CT of the lumbar spine without contrast ADDITIONAL CLINICAL INFORMATION: Ordering Provider Reason For Exam: Technologist Note: Additional: TECHNIQUE: CT of the head, cervical spine, and maxillofacial bones, orbits, and paranasal sinuses was performed without contrast according to standard protocol. Reformatted axial, sagittal, and coronal images of the thoracic and lumbar spine were obtained by the technologist from a concurrently performed body CT and sent to the workstation for review. CT dose reduction technique was used, including Automated Exposure Control. COMPARISON: FINDINGS: Head: An acute subdural hematoma along the right cerebral convexity measuring up to 3 mm in thickness (series 7 image 34). There are subarachnoid blood products in the adjacent cerebral sulci. This is causing mild local mass effect with effacement of adjacent sulci and the right sylvian fissure. There is 3 mm of leftward midline shift. The ventricles appear slitlike with thin sylvian fissures which can be seen in the setting of diffuse cerebral edema particularly with trauma. Air foci within the bilateral cavernous sinuses may be secondary to contrast injection. Soft tissue swelling over the left parietal region measuring 1.2 cm in maximal thickness. There is an underlying nondisplaced skull fracture of the left parietal bone extending into the left temporal bone as a longitudinal temporal bone fracture into the middle ear cavity and the tegmen tympanum/mastoideum with partial opacification of the mastoid air cells and blood products in the acute blood products in the middle and external auditory canals. Fracture line involves the left mandibular fossa, the left petrous apex and the left carotid canal. A small amount of pneumocephalus in the middle cranial fossa. Maxillofacial: Multiple facial fractures as described below: Mildly displaced fracture of the right inferior orbital rim and the inferior wall of the right orbits. Opacification of the right maxillary sinus may represent hemorrhage. Temporal bone fractures described above with fracture line extending into the posterior lateral beach, the floor and the right lateral wall of the sphenoid sinuses. The fracture appears to also involve the left carotid canal. A small amount air is seen within the left carotid canal anteriorly. A CT angiogram of the neck is recommended to exclude vascular injury. Nondisplaced fractures bilateral nasal bones. The globes, optic nerves and extraocular muscles are normal. There is complete opacification of the right maxillary sinus and partial opacification of the ethmoid air cells and sphenoid sinuses likely resulting acute blood products. The hard palate, mandible, and temporomandibular joints appear normal. Cervical spine: The alignment is normal. Vertebral bodies are normal in height without evidence of acute fracture. The craniocervical junction is normal. The intervertebral discs appear normal. No central canal stenosis is seen. The facets appear normal. The uncovertebral joints appear normal. No neural foraminal stenosis is seen. No soft tissue abnormality is identified. Thoracic spine: The alignment is normal. Vertebral bodies are normal in height without evidence of acute fracture. The intervertebral discs appear normal. No central canal stenosis is seen. The facets appear normal. No neural foraminal stenosis is seen. No soft tissue abnormality is identified. Lumbar spine: The alignment is normal. Vertebral bodies are normal in height without evidence of acute fracture. The intervertebral discs appear normal. No central canal stenosis is seen. The facets appear normal. No neural foraminal stenosis is seen. No soft tissue abnormality is identified. Procedure Note Giuseppe Zuñiga MD - 05/25/2024 PROCEDURE: CT LUMBAR SPINE WO CONTRAST, CT THORACIC SPINE WO CONTRAST,CT CERVICAL SPINE WO CONTRAST, CT FACIAL BONES WO CONTRAST, CT HEAD WO CONTRAST, DATE/TIME OF EXAM: 05/25/2024 3:31 AM, LOCATION [facility] INDICATION: Trauma EXAMINATION: 1. Computed tomography (CT) of the head without contrast 2. CT of the maxillofacial bones, orbits, and paranasal sinuses without contrast 3. CT of the cervical spine without contrast 4. CT of the thoracic spine without contrast 5. CT of the lumbar spine without contrast ADDITIONAL CLINICAL INFORMATION: Ordering Provider Reason For Exam: Technologist Note: Additional: TECHNIQUE: CT of the head, cervical spine, and maxillofacial bones,orbits, and paranasal sinuses was performed without contrast according tostandard protocol. Reformatted axial, sagittal, and coronal images of thethoracic and lumbar spine were obtained by the technologist from a concurrently performed body CT and sent to the workstation for review. CT dosereduction technique was used, including Automated Exposure Control. COMPARISON: FINDINGS: Head: An acute subdural hematoma along the right cerebral convexity measuringup to 3 mm in thickness (series 7 image 34). There are subarachnoid blood products in the adjacent cerebral sulci. This is causing mild local mass effect with effacement of adjacent sulci and the right sylvian fissure. There is 3 mm of leftward midline shift. The ventricles appear slitlike with thin sylvian fissures which can be seen in the setting of diffuse cerebral edema particularly with trauma. Air foci within the bilateral cavernous sinuses may be secondary to contrast injection. Soft tissue swelling over the left parietal region measuring 1.2 cm in maximal thickness. There is an underlying nondisplaced skull fracture of the left parietal bone extending into the left temporal bone as a longitudinal temporal bone fracture into the middle ear cavity and the tegmen tympanum/mastoideum with partial opacification of the mastoid air cells and blood products in the acute blood products in the middle and external auditory canals. Fracture line involves the left mandibularfossa, the left petrous apex and the left carotid canal. A small amount of pneumocephalus in the middle cranial fossa. Maxillofacial: Multiple facial fractures as described below: Mildly displaced fracture of the right inferior orbital rim and the inferior wall of the right orbits. Opacification of the right maxillary sinus may represent hemorrhage. Temporal bone fractures described above with fracture line extendinginto the posterior lateral beach, the floor and the right lateral wall of the sphenoid sinuses. The fracture appears to also involve the left carotid canal. A small amount air is seen within the left carotid canalanteriorly. A CT angiogram of the neck is recommended to exclude vascular injury. Nondisplaced fractures bilateral nasal bones. The globes, optic nerves and extraocular muscles are normal. There is complete opacification of the right maxillary sinus and partial opacification of the ethmoid air cells and sphenoid sinuses likely resulting acute blood products. The hard palate, mandible, and temporomandibular joints appear normal. Cervical spine: The alignment is normal. Vertebral bodies are normal in height without evidence of acute fracture. The craniocervical junction is normal. The intervertebral discs appear normal. No central canal stenosis is seen.The facets appear normal. The uncovertebral joints appear normal. No neural foraminal stenosis is seen. No soft tissue abnormality is identified. Thoracic spine: The alignment is normal. Vertebral bodies are normal in height without evidence of acute fracture. The intervertebral discs appear normal. No central canal stenosis is seen. The facets appear normal. No neural foraminal stenosis is seen. No soft tissue abnormality is identified. Lumbar spine: The alignment is normal. Vertebral bodies are normal in height without evidence of acute fracture. The intervertebral discs appear normal. No central canal stenosis is seen. The facets appear normal. No neural foraminal stenosis is seen. No soft tissue abnormality is identified. IMPRESSION: 1.Acute subdural hematoma along the right cerebral convexity measuringup to 3 mm in thickness (series 7 image 34). 2.Small-volume acute subarachnoid blood products in the right cerebral sulci. 3.Mild mass effect with effacement of adjacent sulci and the rightsylvian fissure and 3 mm of leftward midline shift. The ventricles appearslitlike with thin sylvian fissures which can be seen in the setting of diffuse cerebral edema particularly with trauma. 4.A nondisplaced acute fracture of the left parietal bone extending into the left temporal bone involving the left mastoid, the tegmen tympanumand mastoideum, the left middle ear cavity and the left petrous apex with further anterior extension of the fracture to involve the left carotid canal, as well as the posterior lateral beach, the floor and the right lateral wall of the sphenoid sinuses. A small amount air is seen withinthe left carotid canal anteriorly. A CT angiogram of the neck is recommendedto exclude vascular injury. 5.Mildly displaced fracture of the right inferior orbital rim and the inferior wall of the right orbits. Opacification of the right maxillary sinus may represent hemorrhage. 6.Nondisplaced fractures bilateral nasal bones. 7.No evidence of acute fracture in the cervical, thoracic, or lumbarspine. Brain injury guidelines: Skull fracture: Nondisplaced Subdural hematoma: </=4mm. Epidural hematoma: No epidural hematoma. Intraparenchymal hemorrhage: No intraparenchymal hemorrhage. Subarachnoid hemorrhage: Localized-single hemisphere. Intraventricular hemorrhage: No. Midline shift: Yes. These findings were discussed in detail with the patient's careprovider, Dr Dahl by Dr. Ingris Bravo via telephone at 05/25/2024 3:51 AMwith readback comprehension and verification. The report is dictated by Ingris Bravo Dr, MD (residential gas heat technician) I, Giuseppe Zuñiga MD have personally reviewed and interpreted this examination/study. > Interpreting Provider: Giuseppe Zuñiga MD on 05/25/2024 10:22 AM Nick Enriquez MD CT ORDERABLES * XR PELVIS 1 OR 2VW (05/25/2024 3:08 AM CDT) Anatomical Region Laterality Modality Pelvis Radiographic Gracie ging 05/25/2024 3:20 AM CDT Impressions 05/25/2024 6:04 AM CDT IMPRESSION: 1.No acute fracture identified. 2.There is a 3.3 x 7.0 cm lucent lesion in the subtrochanteric region of the right femur which may represent enchondroma versus fibrous dysplasia versus other lesion. Recommend radiographic follow-up within 3 months. Report dictated by Ingris Bravo Dr, MD (residential gas heat technician). Gema Weinberg MD have personally reviewed and interpreted this examination/study. > Interpreting Provider: Gema Ortiz MD on 05/25/2024 6:04 AM Narrative 05/25/2024 6:04 AM CDT PROCEDURE: XR PELVIS 1 OR 2VW, DATE/TIME OF EXAM: 05/25/2024 3:09 AM, LOCATION [facility] INDICATION: Trauma Fracture suspected ADDITIONAL CLINICAL INFORMATION: Ordering Provider Reason For Exam: Technologist Note: Additional: COMPARISON: None. FINDINGS: No acute fracture is identified. There is a 3.3 x 7.0 cm lucent lesion in the subtrochanteric region of the right femur which may represent enchondroma versus fibrous dysplasia versus other lesion. The femoral heads appear well-seated within their respective acetabula. The pubic symphysis is intact. Bone density and texture are normal. The sacroiliac joints are normal. Procedure Note Gema Ortiz MD - 05/25/2024 PROCEDURE: XR PELVIS 1 OR 2VW, DATE/TIME OF EXAM: 05/25/2024 3:09 AM, LOCATION [facility] INDICATION: Trauma Fracture suspected ADDITIONAL CLINICAL INFORMATION: Ordering Provider Reason For Exam: Technologist Note: Additional: COMPARISON: None. FINDINGS: No acute fracture is identified. There is a 3.3 x 7.0 cm lucent lesionin the subtrochanteric region of the right femur which may represent enchondroma versus fibrous dysplasia versus other lesion. The femoralheads appear well-seated within their respective acetabula. The pubicsymphysis is intact. Bone density and texture are normal. The sacroiliac jointsare normal. IMPRESSION: 1.No acute fracture identified. 2.There is a 3.3 x 7.0 cm lucent lesion in the subtrochanteric region of the right femur which may represent enchondroma versus fibrous dysplasia versus other lesion. Recommend radiographic follow-up within 3 months. Report dictated by Ingris Bravo Dr, MD (residential gas heat technician). I, Gema Ortiz MD have personally reviewed and interpreted this examination/study. > Interpreting Provider: Gema Ortiz MD on 05/25/2024 6:04 AM Nick Enriquez MD DIAGNOSTIC IMAGING ORDERABLES * ED LACERATION REPAIR (06/30/2018 11:03 AM CDT) Narrative Salomón Simth MD - 06/30/2018 11:03 AM CDT Clint Whalen, 06/27/2018 11:56 PM Laceration Repair Date/Time: 06/27/2018 11:54 PM Performed by: CLINT WHALEN Authorized by: SALOMÓN SMITH Consent: Consent obtained: Verbal Consent given by: Patient Anesthesia (see MAR for exact dosages): Anesthesia method: Nerve block Block location: Supraorbital Block needle gauge: 25 G Block anesthetic: Lidocaine 1% WITH epi Block technique: Supraorbital Block outcome: Anesthesia achieved Laceration details: Location: Face Face location: L eyebrow Length (cm): 4 Depth (mm): 0.5 Repair type: Repair type: Simple Pre-procedure details: Preparation: Patient was prepped and draped in usual sterile fashion and imaging obtained to evaluate for foreign bodies Exploration: Wound exploration: entire depth of wound probed and visualized Wound extent: no foreign bodies/material noted and no muscle damage noted Treatment: Area cleansed with: Saline Amount of cleaning: Extensive Irrigation solution: Sterile saline Irrigation volume: 500 Irrigation method: Pressure wash and syringe Skin repair: Repair method: Sutures Suture size: 6-0 Suture material: Fast-absorbing gut Number of sutures: 6 Approximation: Approximation: Close Post-procedure details: Dressing: Antibiotic ointment and sterile dressing Patient tolerance of procedure: Tolerated well, no immediate complications Salomón Smith MD PROCEDURE/MINOR SURG ICAL ORDERABLES
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
--- OUTSIDE RECORDS SUMMARY | 2024-11-22 14:39 | XMS_ITS | Encounter Summary ---
Author Organization [facility] Health Address [address] [address] Care Team Providers Care Interlocker Maintainer Name Role Phone Unavailable Primary Care Provider Unavailabl e Encounter Details Date Type Department Care Team (Late st Contact Info) Description 05/25/2024 Ophth Exam [facility] - Ophthalmology [address] [place] [address] Ramses Go MD [address] [facility] [place] [address] Social History Tobacco Use Types Packs/Day Years Used Date Smoking Tobacco: Unknown Alcohol Use Standard Drinks/Week Comments Never 0 (1 standard drink = 0.6 oz pur e alcohol) AUDIT-C Answer Date Recorded Q1: How often do you have a drink containing alc ohol? Patient declined 05/25/2024 Q2: How many drinks containi ng alcohol do you have on a typical day when you are drinking? Patient declined 05/25/2024 Q3: How often do you have si x or more drinks on one occasion? Patient declined 05/25/2024 Overall Financial Resource Strain (CARDIA) Answe r Date Recorded How hard is it for you to pa y for the very basics like food, housing, medical care, and heating? Patient declined 05/27/2024 [facility] [place] of Occupat ional Health - Occupational Stress [...] place to sleep or slept in a skilled nursing (including now)? Patient declined 05/27/2024 Sex and Gender Information Value Date Recorded Sex Assigned at Not on file Gender Identity Not on file Sexual Orientation Not on file documented as of this encounter Plan of Treatment Not on file documented as of this encounter Visit Diagnoses Not on filedocumented in this encounter
--- OUTSIDE RECORDS SUMMARY | 2024-11-22 14:40 | XMS_ITS | Referral Summary ---
Author Organization [facility] Address [address] [place] [address] Care Team Providers Care Chicken Tender Name Role Phone Unavailable Primary Care Provider Unavailabl e Source Comments [facility],non-owned Affiliates and Associated Physician Practices is amultiple site organization consisting of ambulatory clinics and hospital sitesin [place], [place], [place] and [place]. This disclosure is being madepursuant to the Care Everywhere program and may not contain all information available regarding this patient. Last updated 18.[facility] [employer] Allergies No known active allergies Medications * [...] medical care, and heating? Patient declined 05/27/2024 [facility] [place] of Occupat ional Health - Occupational Stress [...] place to sleep or slept in a assisted (including now)? Patient declined 05/27/2024 Sex and [...] Mass Index 21.06 05/30/2024 10:03 PM CDT Functional Status Functional Status Response Date of Assess ment Is person deaf or have serious hearing difficult y? No 05/31/2024 Is person blind or have serious difficulty seein g? No 05/31/2024 Does person have serious dif ficulty walking/climbing stairs? No 05/31/2024 Does person have difficulty dressing/bathing? No 05/31/2024 Does person have difficulty doing errands alone? No 05/31/2024 Cognitive Status Response Date of Assessm ent Does person have difficulty concentrating/remembering/making decisions? No 05/31/2024 Plan of Treatment Not on file Advance Directives * Full Code (Latest Code Status on File) Date Activated Date Inactivated Comments 05/29/2024 8:03 PM 06/04/2024 7:49 PM * Full Code Date Activated Date Inactivated Comments 05/25/2024 5:48 AM 05/28/2024 4:03 PM
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
--- OUTSIDE RECORDS SUMMARY | 2024-11-22 15:04 | XMS_ITS | Clinical Summary ---
Author Organization [facility] Address [address] [place] [address] Care Team Providers Care Special Delivery Carrier Name Role Phone Unavailable Primary Care Provider Unavailabl e Source Comments [facility],non-owned Affiliates and Associated Physician Practices is amultiple site organization consisting of ambulatory clinics and hospital sitesin [place], [place], [place] and [place]. This disclosure is being madepursuant to the Care Everywhere program and may not contain all information available regarding this patient. Last updated 18.[facility] Allergies No known active allergies Medications * [...] medical care, and heating? Patient declined 05/27/2024 [facility] [place] of Occupat ional Health - Occupational Stress [...] place to sleep or slept in a fci (including now)? Patient declined 05/27/2024 Sex and [...]
--- OUTSIDE RECORDS SUMMARY | 2024-11-22 15:04 | XMS_ITS | Encounter Summary ---
Author Organization [facility] Address [address] [place] [address] Care Team Providers Care It Application Support Analyst Name Role Phone Unavailable Primary Care Provider Unavailabl e Encounter Details Date Type Department Care Team (Late st Contact Info) Description 05/25/2024 Ophth Exam [facility] - Ophthalmology [address] [place] [address] Ramses Go MD [address] [facility] [place] [address] Social History Tobacco Use Types [...] medical care, and heating? Patient declined 05/27/2024 [facility] [place] of Occupat ional Health - Occupational Stress [...] place to sleep or slept in a detention (including now)? Patient declined 05/27/2024 Sex and Gender Information Value Date Recorded Sex Assigned at Not on file Gender Identity Not on file Sexual Orientation Not on file documented as of this encounter Plan of Treatment Not on file documented as of this encounter Visit Diagnoses Not on filedocumented in this encounter
--- OUTSIDE RECORDS SUMMARY | 2024-11-22 15:04 | XMS_ITS | Referral Summary ---
Author Organization [facility] Address [address] [place] [address] Care Team Providers Care Stopper Grinder Name Role Phone Unavailable Primary Care Provider Unavailabl e Source Comments [facility],non-owned Affiliates and Associated Physician Practices is amultiple site organization consisting of ambulatory clinics and hospital sitesin [place], [place], [place] and [place]. This disclosure is being madepursuant to the Care Everywhere program and may not contain all information available regarding this patient. Last updated 18.[facility] Allergies No known active allergies Medications * [...] medical care, and heating? Patient declined 05/27/2024 [facility] [place] of Occupat ional Health - Occupational Stress [...] place to sleep or slept in a halfway (including now)? Patient declined 05/27/2024 Sex and [...]
[2024-11-22 15:32] LABS: Add Urine Microscopic? NO; Appearance Urine Clear (Clear); Bilirubin Urine Negative (Negative); Blood Urine Negative (Negative); Color Urine Yellow (Yellow); Glucose Urine UA Negative (Negative); Ketones Urine Negative (Negative); Leukocyte Esterase Ur Negative LEU/UL (Negative); Nitrate Urine Negative (Negative); Protein Urine Negative (Negative); Specific Grav Ur 1.006 (1.001-1.035); Urobilinogen Urine 0.2 mg/dL (<2.0); pH Urine 6.5 (5.0-9.0)
[2024-11-22 15:34] LABS: Basophils Percent Auto 0.4 % (0.2-1.2); Eosinophils Absolute Auto 0.1 K/mm3 (0-0.3); Eosinophils Percent Auto 1.2 % (0-4.4); Hematocrit 35.2 % (42.0-52.0); Hemoglobin 13.1 g/dL (14.0-18.0); Immature Granulocyte Absolute 0.02 K/mm3 (0.00-0.031); Immature Granulocyte Percent A 0.4 % (0-0.5); Lymphocytes Absolute Auto 1.18 K/mm3 (0.9-3.2); Mean Corpuscular HGB Conc 37.2 g/dl (32-36); Mean Corpuscular Hemoglobin 30.8 pg (26-34); Mean Corpuscular Volume 82.6 fl (80-100); Mean Platelet Volume 8.9 fl (7.4-10.4); Monocytes Absolute Auto 0.7 K/mm3 (0.1-0.6); Monocytes Percent Auto 12.4 % (2.6-8.5); Neutrophils Absolute Auto 3.6 K/mm3 (1.3-6.7); Neutrophils Percent Auto 64.6 % (45.5-73.1); Platelet Count Result 272 k/mm3 (150-375); Red Blood Count 4.26 M/mm3 (4.6-6.20); Red Cell Distribution Width 12.2 % (11.5-14.5); White Blood Count 5.6 K/mm3 (4.5-10.0)
[2024-11-22 15:44] LABS: Alanine Aminotransferase 28 U/L (6-50); Albumin Level 4.1 g/dL (3.5-5.1); Alkaline Phosphatase 70 U/L (38-126); Anion Gap 11 mmol/L (4-12); Aspartate Amino Transferase 21 U/L (17-59); Bilirubin,Total 0.7 mg/dL (0.2-1.3); Blood Urea Nitrogen 6 mg/dL (9-20); Calcium 8.4 mg/dL (8.4-10.2); Carbon Dioxide 22 mmol/L (22-30); Chloride 82 mmol/L (98-107); Estimated CRCL calculation 163 ml/min; Estimated Glomerular Filt Rate > 60; Glucose 106 mg/dL (65-110); Sodium 115 mmol/L (137-145)
[2024-11-22 15:50] LABS: Troponin I < 0.012 ng/mL (0.000-0.034)
[2024-11-22] MEDS: SODIUM CHLORIDE 0.9% IV 1,000 ML 150 ML IV CONT (16:22)
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
[2024-11-22] MEDS: SODIUM CHLORIDE 0.9% IV 1,000 ML 125 ML IV CONT (18:03)
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
--- NOTE | 2024-11-22 20:25 | PC.NURSE ---
This patient, Dev Ritter, was admitted to IMU Room 212-01. Patient/family oriented to hospital policies and general routines including ID bracelet, bed and alarms, visiting hours, pain management, procedures, bathroom and other care routines, personal items, smoking policy, room service/diet, and visiting hours. Information on how to activate the Rapid Response Team has been discussed. Patient/Family are encouraged to report perceived risks to care and to ask questions if they do not understand what they are told or what they should do.
[2024-11-22 20:44] LABS: Sodium 117 mmol/L (137-145)
[2024-11-22] MEDS: ACETAMINOPHEN 325 MG TABLET 650 MG PO (21:17)
[2024-11-22] MEDS: SODIUM CHLORIDE 1 GM TABLET PO (22:59)
[2024-11-23] VITALS (12 sets, daily range): BP systolic 112–130; BP diastolic 63–89; PULSE 66–99; RESP 16–20; TEMP 36.4–36.8; O2SAT 99–100
[2024-11-23 00:56] LABS: Sodium 119 mmol/L (137-145)
[2024-11-23 05:56] LABS: Anion Gap 8 mmol/L (4-12); Blood Urea Nitrogen 8 mg/dL (9-20); Calcium 8.7 mg/dL (8.4-10.2); Carbon Dioxide 22 mmol/L (22-30); Chloride 90 mmol/L (98-107); Estimated CRCL calculation 146 ml/min; Estimated Glomerular Filt Rate > 60; Glucose 92 mg/dL (65-110); Sodium 120 mmol/L (137-145)
[2024-11-23] MEDS: SODIUM CHLORIDE 1 GM TABLET PO ×3 (08:43→20:10)
[2024-11-23 09:56] LABS: Sodium 122 mmol/L (137-145)
[2024-11-23 12:33] LABS: Sodium 121 mmol/L (137-145)
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
[2024-11-23] MEDS: ACETAMINOPHEN 325 MG TABLET 650 MG PO (16:01)
[2024-11-23 17:07] LABS: Sodium 117 mmol/L (137-145)
--- NOTE | 2024-11-23 17:11 | PC.NURSE ---
Notified Dr. Tolliver of critical sodium level of 117. New order to redraw lab to verify if this level is correct.
[2024-11-23 17:32] LABS: Sodium 119 mmol/L (137-145)
--- NOTE | 2024-11-23 17:35 | PC.NURSE ---
Notified Dr. Tolliver of critical sodium level on redraw. New order for 10mg PO Lasix now. I will put in some other order. Give me just a few minutes.
[2024-11-23] MEDS: FUROSEMIDE 10 MG TABLET PO ×2 (17:45→20:10)
--- NOTE | 2024-11-23 17:54 | P.PNIM_ITS ---
Progress Note: A&P Assessment and Plan (1) Hyponatremia: Code(s): E87.1 - Hypo-osmolality and hyponatremia Status: Acute Plan Hyponatremia from SIADH with TBI Na 117, 115 on admission Contineu fluid restriction per nephrology Nephrology following HTN titrate home meds with clinical course DVT prophylaxis on Sq Lovenox Subjective Date/time seen: 11/23/24 17:54 Interval history: Comfortable at bedside Review of Systems Review of Systems: 12 systems were reviewed and are negativ e except for as per HPI. Exam Narrative: General: Nontoxic-appearing male sitting up in bed in no acute distress. Weight: 73.7 kg. BMI: 22.7. HEENT: PERRL, EOMI. Sclera anicteric. Oral mucosa moist. Neck: Supple. Respiratory: Lungs are clear to auscultation bilaterally. Cardiovascular: Regular rate and rhythm with S1-S2. Gastrointestinal: Abdomen is soft, nontender, and nondistended with positive bowel sounds. Skin: Warm and dry. No rash or lesions on limited exam. Extremities: No cyanosis, clubbing, or edema. Radial and pedal pulses intact. Neurological: Alert. Cranial nerves 2-12 are grossly intact. Speech is clear. Mild left-sided facial paralysis. Psychiatric: Pleasant and cooperative with appropriate mood and affect. Fair insight to medical conditions. Objective Data Vital Signs Vital Signs: Vital Signs - 24 hr 11/22/24 18:03 11/22/24 18:16 11/22/24 18:32 Temperature Pulse Rate 94 85 88 Respiratory Rate 16 14 19 Blood Pressure 166/96 H Pulse Oximetry 100 93 99 Oxygen Delivery 11/22/24 18:45 11/22/24 18:46 11/22/24 18:47 Temperature Pulse Rate 82 83 94 Respiratory Rate 16 17 21 H Blood Pressure 132/91 H 140/96 H Pulse Oximetry 99 100 Oxygen Delivery 11/22/24 19:00 11/22/24 19:19 11/22/24 19:30 Temperature Pulse Rate 83 80 77 Respiratory Rate 15 17 16 Blood Pressure Pulse Oximetry 99 99 98 Oxygen Delivery 11/22/24 19:31 11/22/24 20:00 11/22/24 20:25 Temperature 98.3 F Pulse Rate 89 78 80 Respiratory Rate 16 16 16 Blood Pressure 140/96 H 151/85 H Pulse Oximetry 98 99 94 Oxygen Delivery 11/22/24 20:25 11/22/24 22:00 11/22/24 23:50 Temperature 98.1 F Pulse Rate 86 76 Respiratory Rate 16 Blood Pressure 107/58 L Pulse Oximetry 99 Oxygen Delivery Room Air 11/22/24 23:51 11/23/24 00:00 11/23/24 00:00 Temperature Pulse Rate 73 Respiratory Rate Blood Pressure 107/58 L Pulse Oximetry Oxygen Delivery Room Air 11/23/24 02:00 11/23/24 03:35 11/23/24 04:00 Temperature 97.6 F Pulse Rate 67 69 Respiratory Rate 16 Blood Pressure 122/63 Pulse Oximetry 99 Oxygen Delivery Room Air 11/23/24 04:00 11/23/24 06:00 11/23/24 07:39 Temperature 98.1 F Pulse Rate 66 67 82 Respiratory Rate 20 Blood Pressure 121/74 Pulse Oximetry 100 Oxygen Delivery 11/23/24 08:00 11/23/24 08:00 11/23/24 10:00 Temperature Pulse Rate 82 78 79 Respiratory Rate 20 Blood Pressure Pulse Oximetry 100 Oxygen Delivery Room Air 11/23/24 11:12 11/23/24 11:27 11/23/24 16:00 Temperature 98.0 F 98.2 F Pulse Rate 76 75 Respiratory Rate 18 18 Blood Pressure 118/75 112/76 Pulse Oximetry 99 99 99 Oxygen Delivery Room Air Intake/Output Intake/Output: Intake & Output 11/20/24 11/21/24 11/22/24 11/23/24 23:59 23:59 23:59 23:59 Intake Total 645 440 Balance 645 440 Meds/Results Medications: Active Medications Generic Name Dose Route Start Last Admin Trade Name Freq PRN Reason Stop Dose Admin Acetaminophen 650 mg 11/22/24 16:56 11/23/24 16:01 Acetaminophen 325 Mg Tablet PO 650 mg Q4H PRN Administration Mild Pain (1-3) or Fever Furosemide 10 mg 11/23/24 19:30 Furosemide 10 Mg Tablet PO 11/23/24 19:31 ONCE ONE Furosemide 10 mg 11/24/24 09:00 Furosemide 10 Mg Tablet PO TID HA Ondansetron HCl 4 mg 11/22/24 16:56 Ondansetron Inj 4 Mg/2 Ml Vial IV PUSH Q4H PRN Nausea Sodium Chloride 1 gm 11/23/24 17:00 11/23/24 16:01 Sodium Chloride 1 Gm Tablet PO 1 gm TID HA Administration Sodium Chloride 1 gm 11/23/24 19:30 Sodium Chloride 1 Gm Tablet PO 11/23/24 19:31 ONCE ONE Labs Labs: Laboratory Results - last 24 hr 11/22/24 11/23/24 11/23/24 20:04 00:23 04:45 Sodium 117 L* 119 L* 120 L Potassium 4.0 Chloride 90 L Carbon Dioxide 22 Anion Gap 8 BUN 8 L Creatinine 0.67 L Estim Creat Clear Calc 146 Estimated GFR > 60 Glucose 92 Calcium 8.7 Magnesium 2.0 11/23/24 11/23/24 11/23/24 09:12 11:52 14:52 Sodium 122 L 121 L 117 L* Potassium Chloride Carbon Dioxide Anion Gap BUN Creatinine Estim Creat Clear Calc Estimated GFR Glucose Calcium Magnesium 11/23/24 17:20 Sodium 119 L* Potassium Chloride Carbon Dioxide Anion Gap BUN Creatinine Estim Creat Clear Calc Estimated GFR Glucose Calcium Magnesium Quality VTE Prophylaxis VTE prophylaxis: mechanical ordered
[2024-11-23 21:50] LABS: Sodium 121 mmol/L (137-145)
[2024-11-23 22:24] LABS: Sodium Urine Random 143 meq/L
[2024-11-24 00:14] VITALS: PULSE 94; O2SAT 100
[2024-11-24 04:50] LABS: Basophils Percent Auto 0.5 % (0.2-1.2); Eosinophils Absolute Auto 0.2 K/mm3 (0-0.3); Eosinophils Percent Auto 4.3 % (0-4.4); Hematocrit 39.2 % (42.0-52.0); Hemoglobin 14.1 g/dL (14.0-18.0); Immature Granulocyte Absolute 0.02 K/mm3 (0.00-0.031); Immature Granulocyte Percent A 0.4 % (0-0.5); Lymphocytes Absolute Auto 1.93 K/mm3 (0.9-3.2); Lymphocytes Percent Auto 34.5 % (18.3-44.2); Mean Corpuscular Hemoglobin 30.7 pg (26-34); Mean Corpuscular Volume 85.4 fl (80-100); Monocytes Absolute Auto 0.6 K/mm3 (0.1-0.6); Monocytes Percent Auto 11.4 % (2.6-8.5); Neutrophils Absolute Auto 2.7 K/mm3 (1.3-6.7); Neutrophils Percent Auto 48.9 % (45.5-73.1); Platelet Count Result 313 k/mm3 (150-375); Red Blood Count 4.59 M/mm3 (4.6-6.20); Red Cell Distribution Width 12.6 % (11.5-14.5); White Blood Count 5.6 K/mm3 (4.5-10.0)
[2024-11-24 05:10] LABS: Alanine Aminotransferase 28 U/L (6-50); Albumin Level 4.4 g/dL (3.5-5.1); Alkaline Phosphatase 72 U/L (38-126); Anion Gap 9 mmol/L (4-12); Aspartate Amino Transferase 19 U/L (17-59); Bilirubin,Total 0.6 mg/dL (0.2-1.3); Blood Urea Nitrogen 7 mg/dL (9-20); Calcium 9.3 mg/dL (8.4-10.2); Carbon Dioxide 26 mmol/L (22-30); Chloride 85 mmol/L (98-107); Estimated CRCL calculation 142 ml/min; Estimated Glomerular Filt Rate > 60; Glucose 93 mg/dL (65-110); Magnesium 1.9 mg/dL (1.6-2.3); Potassium 4.1 mmol/L (3.4-5.0); Sodium 120 mmol/L (137-145)
[2024-11-24 08:08] VITALS: BP 113/70; PULSE 80; RESP 20; TEMP 36.4; O2SAT 100
[2024-11-24] MEDS: SODIUM CHLORIDE 3% 72 ML IV CONT ×2 (08:56→21:59)
[2024-11-24] MEDS: FUROSEMIDE 10 MG TABLET PO ×3 (08:57→17:13)
[2024-11-24] MEDS: SODIUM CHLORIDE 1 GM TABLET PO ×3 (08:57→17:13)
[2024-11-24 13:41] LABS: Sodium 124 mmol/L (137-145)
--- NOTE | 2024-11-24 13:42 | P.PNNP_ITS ---
Progress Note: A&P Assessment and Plan (1) Hyponatremia: Code(s): E87.1 - Hypo-osmolality and hyponatremia Status: Acute Assessment and Plan: * acute on chronic * baseline sodium level not clear but suspicion is never likely normal : * eloped from [facility] in May 2024 -- last sodium 131 but was getting 1.8% saline prior to leaving the hospital * 127mmol/L in June 2024 ([place] ER visit) * 137mmol/L on discharge from [facility] about 2 weeks ago -- however, he was receiving tolvaptan up until discharge and was only started on fluid restriction and salt tabs AFTER discharge from hospital * 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 as the cause of low sodium based on testing done * acute drop in sodium likely precipitated/secondary to non-compliance with salt tabs * evaluation on recent hospitalization noted: * urine electrolytes non-prerenal * TSH okay * cortisol low normal - but stim test negative * serum osmolality 240; urine osmolality 188 * SPEP/UPEP without M-spike/paraproteinemia * CXR negative * CT of head negative * on fluid restriction (1500cc) and salt tabs * restarted on oral lasix as well * s/p 3% saline PRN earlier this morning due to drop in sodium level * follow trend of serial sodium levels Will continue to follow L Subjective Date/time seen: 11/24/24 13:42 Interval history: Follow-up for acute on chronic hyponatremia. Sodium had been improving up until this AM when dropped again; restarted on lasix and given 3% saline this morning subsequent improvement in repeat sodium level; no apparent distress noted at the time of my visit. Exam 2 Narrative: General: WD/WN male in NAD Heart: normal S1 and S2; no rub Lungs: clear to auscultation Abdomen: soft, nontender, nondistended, positive bowel sounds Extremities: no cyanosis or clubbing; no edema Skin: warm and dry Objective Data Vital Signs Vital Signs: Vital Signs Temp Pulse Resp BP Pulse Ox O2 Del Method 11/24/24 13:23 97.9 F 93 20 136/83 99 11/24/24 08:08 97.6 F 80 20 113/70 100 11/24/24 00:14 94 100 11/23/24 20:21 98.2 F 99 20 130/89 100 11/23/24 20:00 Room Air Intake/Output Intake/Output: Intake & Output 11/21/24 11/22/24 11/23/24 11/24/24 23:59 23:59 23:59 23:59 Intake Total 841 723 9213 Balance 702 288 5271 Meds/Results Medications: Active Medications Generic Name Dose Route Start Last Admin Trade Name Freq PRN Reason Stop Dose Admin Acetaminophen 650 mg 11/22/24 16:56 11/23/24 16:01 Acetaminophen 325 Mg Tablet PO 650 mg Q4H PRN Administration Mild Pain (1-3) or Fever Furosemide 10 mg 11/24/24 09:00 11/24/24 17:13 Furosemide 10 Mg Tablet PO 10 mg TID HA Administration Ondansetron HCl 4 mg 11/22/24 16:56 Ondansetron Inj 4 Mg/2 Ml Vial IV PUSH Q4H PRN Nausea Sodium Chloride 1 gm 11/23/24 17:00 11/24/24 17:13 Sodium Chloride 1 Gm Tablet PO 1 gm TID HA Administration Labs Labs: Laboratory Tests 11/24/24 04:34 11/24/24 13:20 11/24/24 04:34 Sodium 120 L Potassium 4.1 Chloride 85 L Carbon Dioxide 26 Anion Gap 9 BUN 7 L Creatinine 0.69 L Estim Creat Clear Calc 142 Estimated GFR > 60 Glucose 93 Calcium 9.3 Magnesium 1.9 Total Bilirubin 0.6 AST 19 ALT 28 Alkaline Phosphatase 72 Total Protein 7.0 Albumin 4.4
--- NOTE | 2024-11-24 15:31 | P.PNIM_ITS ---
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 Exam Narrative: General: Nontoxic-appearing male sitting up in bed in no acute distress. Weight: 73.7 kg. BMI: 22.7. HEENT: PERRL, EOMI. Sclera anicteric. Oral mucosa moist. Neck: Supple. Respiratory: Lungs are clear to auscultation bilaterally. Cardiovascular: Regular rate and rhythm with S1-S2. Gastrointestinal: Abdomen is soft, nontender, and nondistended with positive bowel sounds. Skin: Warm and dry. No rash or lesions on limited exam. Extremities: No cyanosis, clubbing, or edema. Radial and pedal pulses intact. Neurological: Alert. Cranial nerves 2-12 are grossly intact. Speech is clear. Mild left-sided facial paralysis. Psychiatric: Pleasant and cooperative with appropriate mood and affect. Fair insight to medical conditions. Objective Data Vital Signs Vital Signs: Vital Signs - 24 hr 11/23/24 16:00 11/23/24 20:00 11/23/24 20:21 Temperature 98.2 F 98.2 F Pulse Rate 75 99 Respiratory Rate 18 20 Blood Pressure 112/76 130/89 Pulse Oximetry 99 100 Oxygen Delivery Room Air 11/24/24 00:14 11/24/24 08:08 Temperature 97.6 F Pulse Rate 94 80 Respiratory Rate 20 Blood Pressure 113/70 Pulse Oximetry 100 100 Oxygen Delivery Intake/Output Intake/Output: Intake & Output 11/21/24 11/22/24 11/23/24 11/24/24 23:59 23:59 23:59 23:59 Intake Total 645 920 870 Balance 645 920 870 Meds/Results Medications: Active Medications Generic Name Dose Route Start Last Admin Trade Name Freq PRN Reason Stop Dose Admin Acetaminophen 650 mg 11/22/24 16:56 11/23/24 16:01 Acetaminophen 325 Mg Tablet PO 650 mg Q4H PRN Administration Mild Pain (1-3) or Fever Furosemide 10 mg 11/24/24 09:00 11/24/24 12:19 Furosemide 10 Mg Tablet PO 10 mg TID HA Administration Ondansetron HCl 4 mg 11/22/24 16:56 Ondansetron Inj 4 Mg/2 Ml Vial IV PUSH Q4H PRN Nausea Sodium Chloride 1 gm 11/23/24 17:00 11/24/24 12:19 Sodium Chloride 1 Gm Tablet PO 1 gm TID HA Administration Labs Labs: Laboratory Results - last 24 hr 11/23/24 11/23/24 11/23/24 14:52 17:20 21:40 WBC RBC Hgb Hct MCV MCH MCHC RDW Plt Count MPV Immature Gran % (Auto) Neut % (Auto) Lymph % (Auto) [place] % (Auto) Eos % (Auto) Baso % (Auto) Lymph # (Auto) [place] # (Auto) Eos # (Auto) Baso # (Auto) Abs Immat Gran (auto) Absolute Neuts (auto) Absolute Nucleated RBC Nucleated RBC % Sodium 117 L* 119 L* 121 L Potassium Chloride Carbon Dioxide Anion Gap BUN Creatinine Estim Creat Clear Calc Estimated GFR Glucose Calcium Magnesium Total Bilirubin AST ALT Alkaline Phosphatase Total Protein Albumin Ur Random Sodium 11/23/24 11/24/24 11/24/24 21:45 04:34 13:20 WBC 5.6 RBC 4.59 L Hgb 14.1 Hct 39.2 L MCV 85.4 MCH 30.7 MCHC 36.0 RDW 12.6 Plt Count 313 MPV 9.0 Immature Gran % (Auto) 0.4 Neut % (Auto) 48.9 Lymph % (Auto) 34.5 [place] % (Auto) 11.4 H Eos % (Auto) 4.3 Baso % (Auto) 0.5 Lymph # (Auto) 1.93 [place] # (Auto) 0.6 Eos # (Auto) 0.2 Baso # (Auto) 0.0 Abs Immat Gran (auto) 0.02 Absolute Neuts (auto) 2.7 Absolute Nucleated RBC 0.000 Nucleated RBC % 0.0 Sodium 120 L 124 L Potassium 4.1 Chloride 85 L Carbon Dioxide 26 Anion Gap 9 BUN 7 L Creatinine 0.69 L Estim Creat Clear Calc 142 Estimated GFR > 60 Glucose 93 Calcium 9.3 Magnesium 1.9 Total Bilirubin 0.6 AST 19 ALT 28 Alkaline Phosphatase 72 Total Protein 7.0 Albumin 4.4 Ur Random Sodium 143 Quality VTE Prophylaxis VTE prophylaxis: mechanical ordered
[2024-11-24 16:23] VITALS: BP 136/83; PULSE 93; RESP 20; TEMP 36.6; O2SAT 99
[2024-11-24 19:35] LABS: Sodium 122 mmol/L (137-145)
[2024-11-24 20:00] VITALS: BP 135/83; PULSE 77; RESP 16; TEMP 36.6; O2SAT 100
[2024-11-25 00:08] VITALS: PULSE 78; O2SAT 100
[2024-11-25 04:43] LABS: Basophils Percent Auto 0.2 % (0.2-1.2); Eosinophils Absolute Auto 0.2 K/mm3 (0-0.3); Eosinophils Percent Auto 3.8 % (0-4.4); Hematocrit 38.5 % (42.0-52.0); Hemoglobin 13.8 g/dL (14.0-18.0); Immature Granulocyte Absolute 0.02 K/mm3 (0.00-0.031); Immature Granulocyte Percent A 0.4 % (0-0.5); Lymphocytes Absolute Auto 1.58 K/mm3 (0.9-3.2); Lymphocytes Percent Auto 29.9 % (18.3-44.2); Mean Corpuscular HGB Conc 35.8 g/dl (32-36); Mean Corpuscular Hemoglobin 30.7 pg (26-34); Mean Corpuscular Volume 85.7 fl (80-100); Mean Platelet Volume 8.7 fl (7.4-10.4); Monocytes Absolute Auto 0.6 K/mm3 (0.1-0.6); Neutrophils Absolute Auto 2.9 K/mm3 (1.3-6.7); Neutrophils Percent Auto 54.7 % (45.5-73.1); Platelet Count Result 307 k/mm3 (150-375); Red Blood Count 4.49 M/mm3 (4.6-6.20); Red Cell Distribution Width 12.8 % (11.5-14.5); White Blood Count 5.3 K/mm3 (4.5-10.0)
[2024-11-25 04:53] LABS: Alanine Aminotransferase 27 U/L (6-50); Alkaline Phosphatase 66 U/L (38-126); Anion Gap 9 mmol/L (4-12); Aspartate Amino Transferase 23 U/L (17-59); Bilirubin,Total 0.6 mg/dL (0.2-1.3); Blood Urea Nitrogen 12 mg/dL (9-20); Calcium 9.2 mg/dL (8.4-10.2); Carbon Dioxide 24 mmol/L (22-30); Chloride 90 mmol/L (98-107); Estimated CRCL calculation 150 ml/min; Estimated Glomerular Filt Rate > 60; Glucose 93 mg/dL (65-110); Magnesium 1.9 mg/dL (1.6-2.3); Potassium 4.2 mmol/L (3.4-5.0); Sodium 123 mmol/L (137-145)
[2024-11-25 04:55] LABS: Lactic Acid Reflex 0.9 mmol/L (0.7-2.0)
[2024-11-25 08:00] VITALS: PULSE 82; RESP 18; O2SAT 100
[2024-11-25 08:04] VITALS: BP 128/82; PULSE 82; RESP 18; TEMP 36.8; O2SAT 100
[2024-11-25] MEDS: SODIUM CHLORIDE 1 GM TABLET PO ×4 (08:49→21:16)
[2024-11-25] MEDS: SODIUM CHLORIDE 500 MG TABLET PO ×3 (08:49→16:27)
[2024-11-25] MEDS: FUROSEMIDE 10 MG TABLET PO ×2 (08:49→12:28)
[2024-11-25 10:28] LABS: Sodium 122 mmol/L (137-145)
--- NOTE | 2024-11-25 11:20 | P.PNNP_ITS ---
Progress Note: A&P Assessment and Plan (1) Hyponatremia: Code(s): E87.1 - Hypo-osmolality and hyponatremia Status: Acute Assessment and Plan: * acute on chronic * slow improvement... * baseline sodium level not clear but suspicion is never likely normal : * eloped from [facility] in May 2024 -- last sodium 131 but was getting 1.8% saline prior to leaving the hospital * 127mmol/L in June 2024 ([place] ER visit) * 137mmol/L on discharge from 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 as the cause of low sodium based on testing done * acute drop in sodium likely precipitated/secondary to non-compliance with salt tabs * evaluation on recent hospitalization noted: * urine electrolytes non-prerenal * TSH okay * cortisol low normal - but stim test negative * serum osmolality 240; urine osmolality 188 * SPEP/UPEP without M-spike/paraproteinemia * CXR negative * CT of head negative * on fluid restriction, salt tabs, and lasix * salt tablet dosage increase * will likely increase lasix dose as well * s/p 3% saline PRN * we may have to accept a lower sodium level at baseline and focus on ensuring he does no become symptomatic * normal goal of therapy would to aim for a serum sodium close to 130ish range -- but this may not be achievable * perhaps a goal sodium of greater than/equal to 125 is more reasonable? * follow trend of serial sodium levels Will continue to follow L Subjective Date/time seen: 11/25/24 11:20 Interval history: Follow-up for acute on chronic hyponatremia. No apparent distress or acute complaints voiced at the the time of my visit; slow improvement in sodium and appears a bit resistant to therapy; have increased sodium tablet dosage in an effort to compensate; no issues/problems overnight or earlier this morning. Exam 2 Narrative: General: WD/WN male in NAD Heart: normal S1 and S2; no rub Lungs: clear to auscultation Abdomen: soft, nontender, nondistended, positive bowel sounds Extremities: no cyanosis or clubbing; no edema Skin: warm and intact Objective Data Vital Signs Vital Signs: Vital Signs Temp Pulse Resp BP Pulse Ox O2 Del Method 11/25/24 08:04 98.2 F 82 18 128/82 100 11/25/24 08:00 82 18 100 Room Air 11/25/24 00:08 78 100 11/24/24 20:00 Room Air 11/24/24 20:00 97.9 F 77 16 135/83 100 11/24/24 16:23 97.9 F 93 20 136/83 99 Intake/Output Intake/Output: Intake & Output 11/22/24 11/23/24 11/24/24 11/25/24 23:59 23:59 23:59 23:59 Intake Total 884 343 2149 900 Balance 764 182 2195 900 Meds/Results Medications: Active Medications Generic Name Dose Route Start Last Admin Trade Name Freq PRN Reason Stop Dose Admin Acetaminophen 650 mg 11/22/24 16:56 11/23/24 16:01 Acetaminophen 325 Mg Tablet PO 650 mg Q4H PRN Administration Mild Pain (1-3) or Fever Furosemide 10 mg 11/24/24 09:00 11/25/24 12:28 Furosemide 10 Mg Tablet PO 10 mg TID HA Administration Ondansetron HCl 4 mg 11/22/24 16:56 Ondansetron Inj 4 Mg/2 Ml Vial IV PUSH Q4H PRN Nausea Sodium Chloride 1 gm 11/25/24 09:00 11/25/24 12:28 Sodium Chloride 1 Gm Tablet PO 1 gm TID HA Administration Sodium Chloride 1 gm 11/25/24 22:30 Sodium Chloride 1 Gm Tablet PO 11/25/24 22:31 ONCE ONE Sodium Chloride 500 mg 11/25/24 09:00 11/25/24 12:28 Sodium Chloride 500 Mg Tablet PO 500 mg TID HA Administration Labs Labs: Laboratory Tests 11/25/24 04:35 11/25/24 10:06 11/25/24 04:35 Sodium 123 L Potassium 4.2 Chloride 90 L Carbon Dioxide 24 Anion Gap 9 BUN 12 D Creatinine 0.65 L Estim Creat Clear Calc 150 Estimated GFR > 60 Glucose 93 Lactic Acid 0.9 Calcium 9.2 Magnesium 1.9 Total Bilirubin 0.6 AST 23 ALT 27 Alkaline Phosphatase 66 Total Protein 7.0 Albumin 4.0
[2024-11-25 14:00] VITALS: BP 139/84; PULSE 93; RESP 20; TEMP 36.9; O2SAT 100
--- NOTE | 2024-11-25 15:08 | PM.IMPN ---
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 Exam Narrative: General: Nontoxic-appearing male sitting up in bed in no acute distress. Weight: 73.7 kg. BMI: 22.7. HEENT: PERRL, EOMI. Sclera anicteric. Oral mucosa moist. Neck: Supple. Respiratory: Lungs are clear to auscultation bilaterally. Cardiovascular: Regular rate and rhythm with S1-S2. Gastrointestinal: Abdomen is soft, nontender, and nondistended with positive bowel sounds. Skin: Warm and dry. No rash or lesions on limited exam. Extremities: No cyanosis, clubbing, or edema. Radial and pedal pulses intact. Neurological: Alert. Cranial nerves 2-12 are grossly intact. Speech is clear. Mild left-sided facial paralysis. Psychiatric: Pleasant and cooperative with appropriate mood and affect. Fair insight to medical conditions. Objective Data Vital Signs Vital Signs: Vital Signs - 24 hr 11/24/24 16:23 11/24/24 20:00 11/24/24 20:00 Temperature 97.9 F 97.9 F Pulse Rate 93 77 Respiratory Rate 20 16 Blood Pressure 136/83 135/83 Pulse Oximetry 99 100 Oxygen Delivery Room Air 11/25/24 00:08 11/25/24 08:00 11/25/24 08:04 Temperature 98.2 F Pulse Rate 78 82 82 Respiratory Rate 18 18 Blood Pressure 128/82 Pulse Oximetry 100 100 100 Oxygen Delivery Room Air Intake/Output Intake/Output: Intake & Output 11/22/24 11/23/24 11/24/24 11/25/24 23:59 23:59 23:59 23:59 Intake Total 050 708 5796 900 Balance 172 100 1767 900 Meds/Results Medications: Active Medications Generic Name Dose Route Start Last Admin Trade Name Freq PRN Reason Stop Dose Admin Acetaminophen 650 mg 11/22/24 16:56 11/23/24 16:01 Acetaminophen 325 Mg Tablet PO 650 mg Q4H PRN Administration Mild Pain (1-3) or Fever Furosemide 10 mg 11/24/24 09:00 11/25/24 12:28 Furosemide 10 Mg Tablet PO 10 mg TID HA Administration Ondansetron HCl 4 mg 11/22/24 16:56 Ondansetron Inj 4 Mg/2 Ml Vial IV PUSH Q4H PRN Nausea Sodium Chloride 1 gm 11/25/24 09:00 11/25/24 12:28 Sodium Chloride 1 Gm Tablet PO 1 gm TID HA Administration Sodium Chloride 1 gm 11/25/24 22:30 Sodium Chloride 1 Gm Tablet PO 11/25/24 22:31 ONCE ONE Sodium Chloride 500 mg 11/25/24 09:00 11/25/24 12:28 Sodium Chloride 500 Mg Tablet PO 500 mg TID [facility] Administration Labs Labs: Laboratory Results - last 24 hr 11/24/24 11/25/24 11/25/24 19:25 04:35 10:06 WBC 5.3 RBC 4.49 L Hgb 13.8 L Hct 38.5 L MCV 85.7 MCH 30.7 MCHC 35.8 RDW 12.8 Plt Count 307 MPV 8.7 Immature Gran % (Auto) 0.4 Neut % (Auto) 54.7 Lymph % (Auto) 29.9 [place] % (Auto) 11.0 H Eos % (Auto) 3.8 Baso % (Auto) 0.2 Lymph # (Auto) 1.58 [place] # (Auto) 0.6 Eos # (Auto) 0.2 Baso # (Auto) 0.0 Abs Immat Gran (auto) 0.02 Absolute Neuts (auto) 2.9 Absolute Nucleated RBC 0.000 Nucleated RBC % 0.0 Sodium 122 L 123 L 122 L Potassium 4.2 Chloride 90 L Carbon Dioxide 24 Anion Gap 9 BUN 12 D Creatinine 0.65 L Estim Creat Clear Calc 150 Estimated GFR > 60 Glucose 93 Lactic Acid 0.9 Calcium 9.2 Magnesium 1.9 Total Bilirubin 0.6 AST 23 ALT 27 Alkaline Phosphatase 66 Total Protein 7.0 Albumin 4.0 Quality VTE Prophylaxis VTE prophylaxis: mechanical ordered
[2024-11-25 15:40] LABS: Sodium 121 mmol/L (137-145)
[2024-11-25] MEDS: FUROSEMIDE 20 MG TABLET PO (16:27)
[2024-11-25] MEDS: SODIUM CHLORIDE 3% 300 ML 75 ML IV CONT (17:01)
[2024-11-25 21:08] VITALS: BP 140/70; PULSE 96; RESP 18; TEMP 36.7; O2SAT 99
[2024-11-25 22:21] LABS: Sodium 128 mmol/L (137-145)
[2024-11-26 05:57] VITALS: BP 112/63; PULSE 80; RESP 16; TEMP 36.7; O2SAT 100
[2024-11-26 06:19] LABS: Basophils Percent Auto 0.5 % (0.2-1.2); Eosinophils Absolute Auto 0.2 K/mm3 (0-0.3); Hematocrit 37.6 % (42.0-52.0); Hemoglobin 13.3 g/dL (14.0-18.0); Immature Granulocyte Absolute 0.03 K/mm3 (0.00-0.031); Immature Granulocyte Percent A 0.5 % (0-0.5); Lymphocytes Absolute Auto 1.27 K/mm3 (0.9-3.2); Lymphocytes Percent Auto 22.4 % (18.3-44.2); Mean Corpuscular HGB Conc 35.4 g/dl (32-36); Mean Corpuscular Hemoglobin 30.7 pg (26-34); Mean Corpuscular Volume 86.8 fl (80-100); Mean Platelet Volume 8.9 fl (7.4-10.4); Monocytes Absolute Auto 0.7 K/mm3 (0.1-0.6); Neutrophils Absolute Auto 3.5 K/mm3 (1.3-6.7); Neutrophils Percent Auto 61.6 % (45.5-73.1); Platelet Count Result 309 k/mm3 (150-375); Red Blood Count 4.33 M/mm3 (4.6-6.20); Red Cell Distribution Width 12.8 % (11.5-14.5); White Blood Count 5.7 K/mm3 (4.5-10.0)
[2024-11-26 07:27] LABS: Alanine Aminotransferase 27 U/L (6-50); Alkaline Phosphatase 68 U/L (38-126); Anion Gap 7 mmol/L (4-12); Aspartate Amino Transferase 22 U/L (17-59); Bilirubin,Total 0.5 mg/dL (0.2-1.3); Blood Urea Nitrogen 12 mg/dL (9-20); Calcium 9.4 mg/dL (8.4-10.2); Carbon Dioxide 27 mmol/L (22-30); Chloride 93 mmol/L (98-107); Estimated CRCL calculation 137 ml/min; Estimated Glomerular Filt Rate > 60; Glucose 88 mg/dL (65-110); Magnesium 1.8 mg/dL (1.6-2.3); Potassium 4.1 mmol/L (3.4-5.0); Sodium 127 mmol/L (137-145)
[2024-11-26] MEDS: FUROSEMIDE 20 MG TABLET PO ×3 (08:03→16:03)
[2024-11-26] MEDS: SODIUM CHLORIDE 1 GM TABLET PO ×2 (08:03→12:10)
[2024-11-26] MEDS: SODIUM CHLORIDE 500 MG TABLET PO ×3 (08:03→12:24)
--- NOTE | 2024-11-26 09:06 | P.PNIM_ITS ---
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 Exam Narrative: General: Nontoxic-appearing male sitting up in bed in no acute distress. Weight: 73.7 kg. BMI: 22.7. HEENT: PERRL, EOMI. Sclera anicteric. Oral mucosa moist. Neck: Supple. Respiratory: Lungs are clear to auscultation bilaterally. Cardiovascular: Regular rate and rhythm with S1-S2. Gastrointestinal: Abdomen is soft, nontender, and nondistended with positive bowel sounds. Skin: Warm and dry. No rash or lesions on limited exam. Extremities: No cyanosis, clubbing, or edema. Radial and pedal pulses intact. Neurological: Alert. Cranial nerves 2-12 are grossly intact. Speech is clear. Mild left-sided facial paralysis. Psychiatric: Pleasant and cooperative with appropriate mood and affect. Fair insight to medical conditions. Objective Data Vital Signs Vital Signs: Vital Signs - 24 hr 11/25/24 14:00 11/25/24 21:08 11/25/24 21:12 Temperature 98.4 F 98.1 F Pulse Rate 93 96 Respiratory Rate 20 18 Blood Pressure 139/84 140/70 Pulse Oximetry 100 99 Oxygen Delivery Room Air 11/26/24 05:57 Temperature 98.1 F Pulse Rate 80 Respiratory Rate 16 Blood Pressure 112/63 Pulse Oximetry 100 Oxygen Delivery Intake/Output Intake/Output: Intake & Output 11/23/24 11/24/24 11/25/24 11/26/24 23:59 23:59 23:59 23:59 Intake Total 920 1360 1708.8 390 Balance 920 1360 1708.8 390 Meds/Results Medications: Active Medications Generic Name Dose Route Start Last Admin Trade Name Freq PRN Reason Stop Dose Admin Acetaminophen 650 mg 11/22/24 16:56 11/23/24 16:01 Acetaminophen 325 Mg Tablet PO 650 mg Q4H PRN Administration Mild Pain (1-3) or Fever Furosemide 20 mg 11/25/24 17:00 11/26/24 08:03 Furosemide 20 Mg Tablet PO 20 mg TID HA Administration Ondansetron HCl 4 mg 11/22/24 16:56 Ondansetron Inj 4 Mg/2 Ml Vial IV PUSH Q4H PRN Nausea Sodium Chloride 1 gm 11/25/24 09:00 11/26/24 08:03 Sodium Chloride 1 Gm Tablet PO 1 gm TID HA Administration Sodium Chloride 500 mg 11/25/24 09:00 11/26/24 08:03 Sodium Chloride 500 Mg Tablet PO 500 mg TID HA Administration Labs Labs: Laboratory Results - last 24 hr 11/25/24 11/25/24 11/25/24 10:06 14:54 21:55 WBC RBC Hgb Hct MCV MCH MCHC RDW Plt Count MPV Immature Gran % (Auto) Neut % (Auto) Lymph % (Auto) [place] % (Auto) Eos % (Auto) Baso % (Auto) Lymph # (Auto) [place] # (Auto) Eos # (Auto) Baso # (Auto) Abs Immat Gran (auto) Absolute Neuts (auto) Absolute Nucleated RBC Nucleated RBC % Sodium 122 L 121 L 128 L Potassium Chloride Carbon Dioxide Anion Gap BUN Creatinine Estim Creat Clear Calc Estimated GFR Glucose Calcium Magnesium Total Bilirubin AST ALT Alkaline Phosphatase Total Protein Albumin 11/26/24 05:58 WBC 5.7 RBC 4.33 L Hgb 13.3 L Hct 37.6 L MCV 86.8 MCH 30.7 MCHC 35.4 RDW 12.8 Plt Count 309 MPV 8.9 Immature Gran % (Auto) 0.5 Neut % (Auto) 61.6 Lymph % (Auto) 22.4 [place] % (Auto) 12.0 H Eos % (Auto) 3.0 Baso % (Auto) 0.5 Lymph # (Auto) 1.27 [place] # (Auto) 0.7 H Eos # (Auto) 0.2 Baso # (Auto) 0.0 Abs Immat Gran (auto) 0.03 Absolute Neuts (auto) 3.5 Absolute Nucleated RBC 0.000 Nucleated RBC % 0.0 Sodium 127 L Potassium 4.1 Chloride 93 L Carbon Dioxide 27 Anion Gap 7 BUN 12 Creatinine 0.71 Estim Creat Clear Calc 137 Estimated GFR > 60 Glucose 88 Calcium 9.4 Magnesium 1.8 Total Bilirubin 0.5 AST 22 ALT 27 Alkaline Phosphatase 68 Total Protein 7.0 Albumin 4.0 Quality VTE Prophylaxis VTE prophylaxis: mechanical ordered
[2024-11-26 12:06] LABS: Sodium 124 mmol/L (137-145)
--- NOTE | 2024-11-26 12:24 | P.PNNP_ITS ---
Progress Note: A&P Assessment and Plan (1) Hyponatremia: Code(s): E87.1 - Hypo-osmolality and hyponatremia Status: Acute Assessment and Plan: * acute on chronic * slow improvement... 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 as the cause of low sodium based on testing done * acute drop in sodium likely precipitated/secondary to non-compliance with salt tabs on hospitalization at [facility] less than a week ago * not clear what precipitated drop on this admission...possible noncompliance with fluid restriction(?) * evaluation on recent hospitalization noted: * urine electrolytes non-prerenal * TSH okay * cortisol low normal - but stim test negative * serum osmolality 240; urine osmolality 188 * SPEP/UPEP without M-spike/paraproteinemia * CXR negative * CT of head negative * on fluid restriction, salt tabs, and lasix * salt tablet dosage increased again * may increase lasix dos as well * s/p 3% saline PRN * we may have to accept a lower sodium level at baseline and focus on ensuring he does no become symptomatic * normal goal of therapy would to aim for a serum sodium close to 130ish range -- but this may not be achievable * perhaps a goal sodium of greater than/equal to 125 is more reasonable? * follow trend of serial sodium levels Will continue to follow L Subjective Date/time seen: 11/26/24 12:24 Interval history: Follow-up for acute on chronic hyponatremia. Continues to feel well at the time of my visit; s/p 3% saline yesterday evening with sodium 128mmol/L post-infusion; dropped to 127mmol/L this AM and most recent reading is down to 124mmol/L; salt tabs increased to 2000mg and changed fluid restriction to 1200cc/24 hours; no apparent distress noted. Exam 2 Narrative: General: WD/WN male in NAD Heart: normal S1 and S2; no rub Lungs: clear to auscultation Abdomen: soft, nontender, nondistended, positive bowel sounds Extremities: no cyanosis or clubbing; no edema Skin: no rash Objective Data Vital Signs Vital Signs: Vital Signs Temp Pulse Resp BP Pulse Ox O2 Del Method 11/26/24 05:57 98.1 F 80 16 112/63 100 11/25/24 21:12 Room Air 11/25/24 21:08 98.1 F 96 18 140/70 99 11/25/24 14:00 98.4 F 93 20 139/84 100 Intake/Output Intake/Output: Intake & Output 11/23/24 11/24/24 11/25/24 11/26/24 23:59 23:59 23:59 23:59 Intake Total 920 1360 1708.8 392 Balance 920 1360 1708.8 392 Meds/Results Medications: Active Medications Generic Name Dose Route Start Last Admin Trade Name Freq PRN Reason Stop Dose Admin Acetaminophen 650 mg 11/22/24 16:56 11/23/24 16:01 Acetaminophen 325 Mg Tablet PO 650 mg Q4H PRN Administration Mild Pain (1-3) or Fever Furosemide 20 mg 11/25/24 17:00 11/26/24 08:03 Furosemide 20 Mg Tablet PO 20 mg TID HA Administration Ondansetron HCl 4 mg 11/22/24 16:56 Ondansetron Inj 4 Mg/2 Ml Vial IV PUSH Q4H PRN Nausea Sodium Chloride 1 gm 11/25/24 09:00 11/26/24 08:03 Sodium Chloride 1 Gm Tablet PO 1 gm TID HA Administration Sodium Chloride 500 mg 11/25/24 09:00 11/26/24 08:03 Sodium Chloride 500 Mg Tablet PO 500 mg TID HA Administration Labs Labs: Laboratory Tests 11/26/24 05:58 11/26/24 11:53 11/26/24 05:58 Sodium 127 L Potassium 4.1 Chloride 93 L Carbon Dioxide 27 Anion Gap 7 BUN 12 Creatinine 0.71 Estim Creat Clear Calc 137 Estimated GFR > 60 Glucose 88 Calcium 9.4 Magnesium 1.8 Total Bilirubin 0.5 AST 22 ALT 27 Alkaline Phosphatase 68 Total Protein 7.0 Albumin 4.0 11/24/24 11/24/24 11/24/24 11/25/24 11/25/24 02/21/25 02/21/24 04:34 13:20 19:25 04:35 10:06 14:54 21:55 Sodium 120 L 124 L 122 L 123L 122 L 121 L 128 L
[2024-11-26 14:00] VITALS: BP 125/74; PULSE 84; RESP 18; TEMP 37.5; O2SAT 99
[2024-11-26] MEDS: SODIUM CHLORIDE 1 GM TABLET 2 GM PO (16:03)
[2024-11-26 19:23] LABS: Sodium 125 mmol/L (137-145)
[2024-11-26 21:05] VITALS: BP 141/75; PULSE 97; RESP 16; TEMP 36.6; O2SAT 97
[2024-11-27 05:23] VITALS: BP 123/68; PULSE 78; RESP 18; TEMP 36.6; O2SAT 99
[2024-11-27 05:54] LABS: Basophils Percent Auto 0.6 % (0.2-1.2); Eosinophils Absolute Auto 0.2 K/mm3 (0-0.3); Eosinophils Percent Auto 3.4 % (0-4.4); Hematocrit 39.1 % (42.0-52.0); Hemoglobin 13.6 g/dL (14.0-18.0); Immature Granulocyte Absolute 0.03 K/mm3 (0.00-0.031); Immature Granulocyte Percent A 0.4 % (0-0.5); Lymphocytes Absolute Auto 1.75 K/mm3 (0.9-3.2); Lymphocytes Percent Auto 25.6 % (18.3-44.2); Mean Corpuscular HGB Conc 34.8 g/dl (32-36); Mean Corpuscular Hemoglobin 29.9 pg (26-34); Mean Corpuscular Volume 85.9 fl (80-100); Mean Platelet Volume 8.7 fl (7.4-10.4); Monocytes Absolute Auto 0.7 K/mm3 (0.1-0.6); Monocytes Percent Auto 10.2 % (2.6-8.5); Neutrophils Absolute Auto 4.1 K/mm3 (1.3-6.7); Neutrophils Percent Auto 59.8 % (45.5-73.1); Platelet Count Result 338 k/mm3 (150-375); Red Blood Count 4.55 M/mm3 (4.6-6.20); Red Cell Distribution Width 12.7 % (11.5-14.5); White Blood Count 6.8 K/mm3 (4.5-10.0)
[2024-11-27 06:09] LABS: Alanine Aminotransferase 32 U/L (6-50); Albumin Level 4.3 g/dL (3.5-5.1); Alkaline Phosphatase 73 U/L (38-126); Anion Gap 10 mmol/L (4-12); Aspartate Amino Transferase 22 U/L (17-59); Bilirubin,Total 0.8 mg/dL (0.2-1.3); Blood Urea Nitrogen 11 mg/dL (9-20); Calcium 9.7 mg/dL (8.4-10.2); Carbon Dioxide 28 mmol/L (22-30); Chloride 88 mmol/L (98-107); Estimated CRCL calculation 134 ml/min; Estimated Glomerular Filt Rate > 60; Glucose 96 mg/dL (65-110); Magnesium 1.8 mg/dL (1.6-2.3); Potassium 4.1 mmol/L (3.4-5.0); Sodium 126 mmol/L (137-145)
[2024-11-27 10:20] VITALS: BP 122/83; PULSE 98; RESP 16; TEMP 36.2; O2SAT 100
[2024-11-27] MEDS: FUROSEMIDE 20 MG TABLET PO (10:24)
[2024-11-27] MEDS: SODIUM CHLORIDE 1 GM TABLET 2 GM PO (10:26)
[2024-11-27] MEDS: ACETAMINOPHEN 325 MG TABLET 650 MG PO (11:00)
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
== END 2024-11-27 12:48 | disposition home or self-care (01) | DRG 426 ==
LOC: ANHED 16:52 → ANHIMU 18:03 → ANH2MED 11-27 11:22 → ANHIMU 11-29 15:18
PROVIDERS: Internal Medicine Nephrology; Admitting Provider Hospitalist; Emergency Provider Family Medicine; Visit Provider Internal Medicine
DX: E22.2 Syndrome of inappropriate secretion of antidiuretic hormone (principal); I10 Essential (primary) hypertension; F90.9 Attention-deficit hyperactivity disorder, unspecified type; F17.290 Nicotine dependence, other tobacco product, uncomplicated; Z87.820 Personal history of traumatic brain injury
CPT/HCPCS: 36415; 80048; 80053; 81003; 83605; 83735; 84295; 84300; 84484; 85025; 96361; 96374; 99285; A9270; J7030; J7131